=== PATIENT | female | born 1950 | race Caucasian/White ===

== ENCOUNTER 2017-04-15 20:14 | Emergency (ER) | payer OTHER ==
[~2017-04-15] VITALS: Ht 170.2 cm; Wt 77.5 kg
[~2017-04-15 20:14] MED LIST: AMLO-114 PO; ATV5 PO; BUPR-79 PO; GLC500 PO; GLCSR5 PO; LISI40TA PO; TRIA0.1C20 TD
[2017-04-15 20:15] VITALS: TEMP 37.3; Ht 170.2 cm; Wt 77.5 kg
[2017-04-15 21:25] LABS: ALBUMIN 3.9 gm/dl (3.4-5.0); ALT/SGPT 16 U/L (12-78); AST/SGOT 16 U/L (15-37); BLOOD UREA NITROGEN 12 mg/dl (7-18); CALCIUM 8.9 mg/dl (8.5-10.1); CARBON DIOXIDE 27 mmol/L (21-32); GLUCOSE 293 mg/dl (70-99); POTASSIUM 3.4 mmol/L (3.5-5.1); SODIUM 137 mmol/L (136-145)
[2017-04-15 21:35] LABS: BASO % 0.4 %; BASO ABS # 0.03 K/uL (0-0.2); EOS % 0.5 %; EOS ABS # 0.04 K/uL (0-0.5); HEMATOCRIT 39.8 % (37-47); IG# 0.01 K/uL (0.00-0.02); LYMPH % 30.3 %; LYMPH ABS # 2.24 K/uL (1.2-3.4); MEAN CELL VOLUME 82.6 fL (80-100); MEAN CORPUSCULAR HGB CONC 35.2 g/dl (32-36); MEAN PLATELET VOLUME 11.1 fL (7.4-10.4); MONO % 6.9 %; MONO ABS # 0.51 K/uL (0.11-0.59); NEUT % 61.8 %; NEUT ABS # 4.57 K/uL (1.4-6.5); PLATELET COUNT 240 K/uL (130-400); RED CELL DISTRIBUTION WIDTH CV 13.2 % (11.5-14.5); RED CELL DISTRIBUTION WIDTH SD 39.9 fL (36.4-46.3)
[2017-04-15 21:36] LABS: ALKALINE PHOSPHATASE 93 U/L (45-117); CKMB < 0.5 ng/ml (0.5-3.6); TOTAL PROTEIN 7.5 gm/dl (6.4-8.2)
--- NOTE | 2017-04-15 22:02 | DIAGNOSTIC IMAGING REPORT ---
CHEST ONE VIEW PORTABLE HISTORY: Syncope COMPARISON: Chest 07/08/2009. FINDINGS: The lungs are clear. Cardiac silhouette is normal in size. No pleural effusions. No pneumothorax. IMPRESSION: No acute process. Electronically signed by: Brian Jackson M.D. 04/15/2017 10:01 PM Dictated Date/Time: 04/15/2017 10:00 PM
[2017-04-15] MEDS ORDERED: SODIUM CHLORIDE 0.9% 1000ML 1,000 ML, SODIUM CHLORIDE 0.9% 1000ML 1,000 ML IV ONE (22:15)
[2017-04-15] MEDS ORDERED: OPTIRAY 320 IV PRN (22:30)
--- NOTE | 2017-04-15 23:03 | DIAGNOSTIC IMAGING REPORT ---
HEAD CT NONCONTRAST CT DOSE: 1129.79 mGy.cm HISTORY: Syncope. Head injury. TECHNIQUE: Multiaxial CT images of the head were performed without the use of intravenous contrast. Automated exposure control was utilized for this study. A dose lowering technique was utilized adhering to the principles of ALARA. Comparison: Head CT 04/18/2011. Findings: The paranasal sinuses and mastoid air cells are clear. The calvarium and skull base are intact. The ventricles and sulci are within normal limits. There is no mass, hematoma, midline shift, or acute infarct. Impression: No acute intracranial abnormality. Electronically signed by: Brian Jackson M.D. 04/15/2017 11:02 PM Dictated Date/Time: 04/15/2017 10:58 PM
--- NOTE | 2017-04-15 23:11 | DIAGNOSTIC IMAGING REPORT ---
CHEST CTA for PULMONARY ARTERIES CT DOSE: HISTORY: Tachycardia. TECHNIQUE: Multiaxial CT images of the chest were performed following the intravenous administration of contrast to evaluate the pulmonary arteries. Maximal intensity projection images were also obtained. A dose lowering technique was utilized adhering to the principles of ALARA. COMPARISON STUDY: Chest CT 04/18/2011. FINDINGS: The visualized liver and adrenal glands are unremarkable. Punctate calcified granuloma within the spleen. A 1 cm calcified splenic artery aneurysm. No pleural or pericardial effusions. The heart is normal in size. No mediastinal or hilar lymphadenopathy. No suspicious lytic or blastic osseous lesions. No acute fractures identified within the chest. No pneumothorax. The central airways are patent. Punctate calcified granuloma within the left lung base. The lungs are otherwise clear. Normal caliber thoracic aorta with no evidence for dissection. No filling defects within the pulmonary arteries to suggest pulmonary embolus. IMPRESSION: No evidence for pulmonary embolus. Electronically signed by: Brian Jackson M.D. 04/15/2017 11:10 PM Dictated Date/Time: 04/15/2017 11:02 PM
[2017-04-16] MEDS ORDERED: HYDR25TA4 PO (01:54)
[2017-04-16] MEDS ORDERED: METF-384 PO (01:55)
[2017-04-16] MEDS ORDERED: METO100T14 PO (01:55)
[2017-04-16 01:57] VITALS: BP 142/85; PULSE 95; O2SAT 96
--- NOTE | 2017-04-16 07:35 | EMERGENCY ROOM VISIT NOTE ---
History First contact with patient: 21:57 Chief Complaint: SYNCOPE Stated Complaint: SYNCOPE Nursing Triage Summary: PT stood up to get out of bed this evening "I became very light headed and dizzy, I passed out." PT hit left side of nose, PT did have bleeding for EMS. upon arrival, PT has no active bleeding. PT AAO X 3, face symmetrical, PERRL, PT has no complaints. PT denies CP or SOB. PT speech clear and articulate. History of Present Illness The patient is a 66 year old female who presents to the Emergency Room with complaints of syncopal versus near syncopal episode that occurred about 2 hours ago. The patient is currently under the care of [facility], and was laying in her cot, when she stood up to use the bathroom, felt dizzy, sat down, and had the episode. The patient believes that she may have struck her left side head, but did not have bleeding or other injury. She does not describe chest pain, chest tightness, shortness of breath, palpitations, or spinning before after the event. The patient denies other concerns. She rates her discomfort a 4/10. Review of Systems More than 10 systems were reviewed and otherwise negative with the exception of history of present illness. Past Medical/Surgical History Diabetes and hypertension Family History No pertinent family history Social History Smoking Status: Former Smoker Marital Status: Occupation Status: unemployed Current/Historical Medications Scheduled Amlodipine (Norvasc), 10 MG PO DAILY Hydrochlorothiazide (Hctz), 50 MG PO DAILY Lisinopril (Prinivil), 40 MG PO QAM Metformin Hcl (Glucophage), 1,000 MG PO BID Metoprolol Tartrate (Lopressor) (Lopressor), 100 MG PO BID Physical Exam Vital Signs Date Time Temp Pulse Resp B/P (MAP) Pulse Ox O2 Delivery O2 Flow Rate FiO2 04/16/17 01:57 95 18 142/85 96 04/16/17 01:17 93 04/16/17 00:58 143/88 04/16/17 00:30 94 24 94 Room Air 04/16/17 00:00 103 20 95 Room Air 04/15/17 23:30 97 18 94 Room Air 04/15/17 23:00 101 23 93 Room Air 04/15/17 22:46 106 18 138/79 95 Room Air 04/15/17 21:20 117 04/15/17 20:15 37.3 132 18 169/112 98 Room Air Physical Exam VITALS: Vitals are noted on the nurse's note and reviewed by myself. Vital signs stable. GENERAL: Well-developed, well-nourished, white female, who is in no acute distress and resting comfortably. Patient is cooperative with the examination. GCS 15 HEAD: Normocephalic atraumatic. EARS: External ear normal. External auditory canals clear, tympanic membranes pearly wesley without erythema or effusion bilaterally. EYES: Pupils equal round and reactive to light and accommodation. Conjunctivae without injection, sclerae without icterus. Extraocular movements intact. NOSE: Patent, turbinates without inflammation or discharge. MOUTH: Mucous membranes moist. Tonsils are not enlarged. Pharynx without erythema, blood, or exudate. Uvula midline. Airway patent. NECK: Supple without nuchal rigidity. No lymphadenopathy. No thyromegaly. Cervical spine is nontender. HEART: Tachycardic rate with regular rhythm LUNGS: Clear to auscultation bilaterally without wheezes, rales or rhonchi. No retractions or accessory muscle use. ABDOMEN: Positive normal bowel sounds x 4. Soft, nontender, without masses or organomegaly. No guarding or rebound tenderness. MUSCULOSKELETAL: No muscle atrophy, erythema, or edema noted. Full range of motion without joint tenderness in all extremities. No tenderness to palpation. Normal gait. Strength 5/5 throughout. NEURO: Patient was alert and oriented to person place and time. CN II through XII grossly intact. No focal neurological deficits. Deep tendon reflexes 2+ throughout. SKIN: The skin was without rashes, erythema, edema, or bruising. Capillary refill less than 2 seconds. Medical Decision & Procedures ER Provider Diagnostic Interpretation: HEAD CT NONCONTRAST CT DOSE: 1129.79 mGy.cm HISTORY: Syncope. Head injury. TECHNIQUE: Multiaxial CT images of the head were performed without the use of intravenous contrast. Automated exposure control was utilized for this study. A dose lowering technique was utilized adhering to the principles of ALARA. Comparison: Head CT 04/18/2011. Findings: The paranasal sinuses and mastoid air cells are clear. The calvarium and skull base are intact. The ventricles and sulci are within normal limits. There is no mass, hematoma, midline shift, or acute infarct. Impression: No acute intracranial abnormality. CHEST CTA for PULMONARY ARTERIES CT DOSE: HISTORY: Tachycardia. TECHNIQUE: Multiaxial CT images of the chest were performed following the intravenous administration of contrast to evaluate the pulmonary arteries. Maximal intensity projection images were also obtained. A dose lowering technique was utilized adhering to the principles of ALARA. COMPARISON STUDY: Chest CT 04/18/2011. FINDINGS: The visualized liver and adrenal glands are unremarkable. Punctate calcified granuloma within the spleen. A 1 cm calcified splenic artery aneurysm. No pleural or pericardial effusions. The heart is normal in size. No mediastinal or hilar lymphadenopathy. No suspicious lytic or blastic osseous lesions. No acute fractures identified within the chest. No pneumothorax. The central airways are patent. Punctate calcified granuloma within the left lung base. The lungs are otherwise clear. Normal caliber thoracic aorta with no evidence for dissection. No filling defects within the pulmonary arteries to suggest pulmonary embolus. IMPRESSION: No evidence for pulmonary embolus. CHEST ONE VIEW PORTABLE HISTORY: Syncope COMPARISON: Chest 07/08/2009. FINDINGS: The lungs are clear. Cardiac silhouette is normal in size. No pleural effusions. No pneumothorax. IMPRESSION: No acute process. Laboratory Results 04/15/17 20:30 Red Blood Count 4.82, Mean Corpuscular Volume 82.6, Mean Corpuscular Hemoglobin 29.0, Mean Corpuscular Hemoglobin Concent 35.2, Mean Platelet Volume 11.1, Neutrophils (%) (Auto) 61.8, Lymphocytes (%) (Auto) 30.3, Monocytes (%) (Auto) 6.9, Eosinophils (%) (Auto) 0.5, Basophils (%) (Auto) 0.4, Neutrophils # (Auto) 4.57, Lymphocytes # (Auto) 2.24, Monocytes # (Auto) 0.51, Eosinophils # (Auto) 0.04, Basophils # (Auto) 0.03 04/15/17 20:30 Test 04/15/17 20:30 White Blood Count 7.40 K/uL (4.8-10.8) Red Blood Count 4.82 M/uL (4.2-5.4) Hemoglobin 14.0 g/dL (12.0-16.0) Hematocrit 39.8 % (37-47) Mean Corpuscular Volume 82.6 fL (80-100) Mean Corpuscular Hemoglobin 29.0 pg (25-34) Mean Corpuscular Hemoglobin Concent 35.2 g/dl (32-36) Platelet Count 240 K/uL (130-400) Mean Platelet Volume 11.1 fL (7.4-10.4) Neutrophils (%) (Auto) 61.8 % Lymphocytes (%) (Auto) 30.3 % Monocytes (%) (Auto) 6.9 % Eosinophils (%) (Auto) 0.5 % Basophils (%) (Auto) 0.4 % Neutrophils # (Auto) 4.57 K/uL (1.4-6.5) Lymphocytes # (Auto) 2.24 K/uL (1.2-3.4) Monocytes # (Auto) 0.51 K/uL (0.11-0.59) Eosinophils # (Auto) 0.04 K/uL (0-0.5) Basophils # (Auto) 0.03 K/uL (0-0.2) RDW Standard Deviation 39.9 fL (36.4-46.3) RDW Coefficient of Variation 13.2 % (11.5-14.5) Immature Granulocyte % (Auto) 0.1 % Immature Granulocyte # (Auto) 0.01 K/uL (0.00-0.02) Anion Gap 9.0 mmol/L (3-11) Est Creatinine Clear Calc Drug Dose 54.7 ml/min Estimated GFR () 61.0 Estimated GFR (Non- 52.6 BUN/Creatinine Ratio 10.7 (10-20) Calcium Level 8.9 mg/dl (8.5-10.1) Magnesium Level 1.3 mg/dl (1.8-2.4) Total Bilirubin 0.3 mg/dl (0.2-1) Aspartate Amino Transf (AST/SGOT) 16 U/L (15-37) Alanine Aminotransferase (ALT/SGPT) 16 U/L (12-78) Alkaline Phosphatase 93 U/L (45-117) Creatine Kinase MB < 0.5 ng/ml (0.5-3.6) Creatine Kinase MB Ratio (0-3.0) Troponin I < 0.015 ng/ml (0-0.045) Total Protein 7.5 gm/dl (6.4-8.2) Albumin 3.9 gm/dl (3.4-5.0) Globulin 3.6 gm/dl (2.5-4.0) Albumin/Globulin Ratio 1.1 (0.9-2) Thyroid Stimulating Hormone (TSH) 2.790 uIu/ml (0.300-4.500) Medications Administered Medications (Trade) Dose Ordered Sig/Ruben Route Start Time Stop Time Status Last Admin Dose Admin Sodium Chloride/ Sodium Chloride 2,000 ml @ 999 mls/hr Q2H1M ONCE IV 04/15/17 22:15 04/16/17 00:15 DC 04/15/17 22:44 999 MLS/HR ED Course Physical exam and history were performed. Nursing notes, EMR, and Medication List were personally reviewed. Patient appears to have had a possible syncopal episode today. On examination the patient appears well. She is actively conversing with guards, and laughing. She does not have significant outward signs of trauma. IV access was established and labs were obtained. EKG was performed and was sinus tachycardia 109 bpm without obvious ischemia. I did review this myself and with my attending physician, and the patient's EKG is essentially unchanged from previous EKG in 2009. I did elect to perform CT scan of her head and chest to better evaluate her symptoms. The patient's blood work is as above and was reviewed. She does not have a significantly elevated white blood cell count, gross anemia, bandemia, or significant electrolyte imbalance. Her sugar is elevated, but she is a diabetic. The patient's blood pressure was initially elevated, but this also improved over time and hydration. The patient CT scan of the head is without acute findings. Chest CT does not show pulmonary embolism. Troponin is negative. The patient was monitored over the course of several hours here in the department. She did not have recurrence or any worsening of her symptoms. She slowly had improvement of her vital signs with minimal intervention other than hydration. Clinically I suspect that she may have been dehydrated, and triggered a vasovagal episode from standing from a laying position. The patient appears well for discharge will need to follow with the [facility] for further management. She was otherwise invited back to the ER with any new, worsening, or concerning symptoms. The chart was completed utilizing [employer] Voice Recognition Software. Grammatical errors, random word insertions, pronoun errors, and incomplete sentences are an occasional consequence of this system due to software limitations, ambient noise, and hardware issues. Any formal questions or concerns about the content, text, or information contained within the body of this dictation should be directly addressed to the provider for clarification. . Medical Decision Differential diagnosis: Etiologies such as vasovagal event, infection, hypoglycemia, electrolyte abnormalities, cardiac sources, intracerebral event, toxicologic, neurologic, as well as others were entertained. Impression Primary Impression: Syncope and collapse Additional Impression: Head injury Departure Information Dispostion Home / Self-Care Condition GOOD Forms HOME CARE DOCUMENTATION FORM, IMPORTANT VISIT INFORMATION Patient Instructions [facility] Additional Instructions You were seen and evaluated today on an emergency basis only. This is not a substitute for, or an effort to provide, complete comprehensive medical care. It is not possible to recognize and treat all injuries or illnesses in a single emergency department visit. For this reason it is recommended that you followup with the [facility] for ongoing care and evaluation. Drink plenty of fluids and remain well hydrated. Dehydration can contribute to your symptoms. You are welcome to return to the emergency department anytime with new, worsening, or concerning symptoms. Problem Qualifiers
== END 2017-04-16 01:58 | disposition home or self-care (01) ==
LOC: C.EDC 20:14 → EDBD 20:14 → C.EDC 04-16 01:58
DX: R55 Syncope and collapse (principal); S09.90XA Unspecified injury of head, initial encounter; X58.XXXA Exposure to other specified factors, initial encounter; Z87.891 Personal history of nicotine dependence

== ENCOUNTER 2023-03-05 11:23 | Inpatient (IN) ==
--- NOTE | 2023-03-05 11:35 | Emergency Department Note ---
History of Present Illness General Chief complaint: Foot Injury/Pain Time Seen by Provider: 03/05/23 11:26 History of Present Illness NAME: LUISITO VALLE AGE: 72 SEX: F : 1950 ARRIVES VIA: Ambulance INFORMANT: Patient, Mother ED PROVIDER(S): ABY Lal,, Raj Ford MD The patient is a 72-year-old female who arrives to the emergency department via ambulance for foot pain upon arrival the patient has a necrotic fourth right toe, with multiple necrotic wounds on her bilateral feet, as well as cellulitis extending up both legs with edema. The patient has wounds on her buttocks, as well as her back and her nose. The patient is very ill-appearing, and tachycardic upon arrival. She is a poor historian, and does not see a doctor regularly when asked about what medications she takes she was able to reports she takes metformin, however she does not recall any other meds. The patient is not currently reporting any abdominal pain, chest pain, shortness of breath, or neurological symptoms. She is reporting pain in her right foot, since she "hit it on a table a few days ago." Home Medications Medication Instructions Recorded Confirmed Type amlodipine 5 mg tablet 5 mg PO DAILY 03/05/23 03/05/23 History aspirin 81 mg tablet,delayed 81 mg PO DAILY 03/05/23 03/05/23 History release atorvastatin 80 mg tablet 80 mg PO HS 03/05/23 03/05/23 History clopidogrel 75 mg tablet 75 mg PO DAILY 03/05/23 03/05/23 History glipizide 5 mg tablet 5 mg PO BID 03/05/23 03/05/23 History lisinopril 20 20 - 25 tab PO DAILY 03/05/23 03/05/23 History mg-hydrochlorothiazide 25 mg tablet metformin 1,000 mg tablet 1,000 mg PO BIDM 03/05/23 03/05/23 History Allergies Allergy/AdvReac Type Severity Reaction Status Date / Time No Known Allergies Allergy Verified 03/28/21 02:27 Past Med/Surg History Medical History (Updated 03/06/23 @ 21:01 by ABY Wynn) Septic shock ARDS (adult respiratory distress syndrome) Cardiac arrest T2DM (type 2 diabetes mellitus) HLD (hyperlipidemia) PAD (peripheral artery disease) Mr. Valle returns to clinic s/p percutaneous transluminal angioplasty of the right anterior tibial artery (2.5 x 40 mm [place] balloon), percutaneous transluminal angioplasty of the right tibioperoneal trunk (2.5 x 40 mm [place] balloon) and percutaneous transluminal angioplasty and stenting of the right superficial femoral artery and popliteal artery (6 x 100 mm and 6 x 40 mm Pors[place] stents, post-dilated to 5 mm) by Dr. Mckeon 06/21/2021. Psoriasis No pertinent family history HTN (hypertension) Syncope and collapse Head injury Surgical History (Updated 03/06/23 @ 15:28 by Elzbieta Rainey MD) History of incision and drainage (03/05/23) Incision and Drainage Infected Hematoma Right Foot Plantar Surface - Lm Steele DO Hx of lithotripsy Hx of angioplasty Family History Mother Cancer brain cancer age 76 Father Diabetes Social History Smoking Status: Current some day smoker Cigarettes Per Day: 3 cigarettes/month; Second Hand Exposure: Yes; Hx Alcohol Use: No Hx Substance Use: No Preferred Language: Spanish Communication Ability: Effective Visual Impairment: No Limitations Hearing Ability: Normal Cleater Required: No Beliefs That Will Affect Care: None marital status: / Current Living Situation: Alone Current Living Situation Comment: Lives alone in apartment Feels Safe at Home: Yes Assistive Devices: Denture - Upper Physical Exam Vital Signs Vital Signs - 24 hr 03/05/23 11:33 03/05/23 11:35 03/05/23 11:58 Temperature 36.9 C 36.9 C Temperature Source Oral Oral Pulse Rate 133 H Pulse Rate [Apical] 138 H Pulse Rhythm Regular Pulse Strength Normal Respiratory Rate 18 28 H Respiratory Effort / Characteristics Non-Labored Respiratory Depth Normal Respiratory Pattern Regular Blood Pressure 182/116 H Blood Pressure [Right Arm] 164/119 H Blood Pressure Mean 138 Blood Pressure Mean [Right Arm] 134 Pulse Oximetry 100 100 Oxygen Delivery Method Room Air Room Air Oxygen Flow Rate 116 Sepsis Recent Fever Within 48 Hours No Sepsis New/Unexplained Change in Mental Status No Sepsis Action Taken by Nursing No Action Required 03/05/23 12:00 03/05/23 12:20 Temperature Temperature Source Pulse Rate Pulse Rate [Apical] 138 H 141 H Pulse Rhythm Pulse Strength Respiratory Rate 28 H 29 H Respiratory Effort / Characteristics Respiratory Depth Respiratory Pattern Blood Pressure Blood Pressure [Right Arm] Blood Pressure Mean Blood Pressure Mean [Right Arm] Pulse Oximetry 98 100 Oxygen Delivery Method Room Air Room Air Oxygen Flow Rate Sepsis Recent Fever Within 48 Hours Sepsis New/Unexplained Change in Mental Status Sepsis Action Taken by Nursing General: Awake, alert and oriented. No acute distress. Well developed, hydrated and nourished. Appears stated age. Skin: There are multiple wounds on the patient's body in various stages of healing. Head: The head is normocephalic and atraumatic without tenderness, visible or palpable masses, depressions, or scarring. There is a wound to the patient's bridge of the nose, it appears to be an ulcerated lesion Eyes: Conjunctivae are clear without exudates or hemorrhage. Sclera is non- icteric. EOM are intact, PERRLA. No signs of nystagmus. Eyelids are normal in appearance without swelling or lesions. Ears: The external ear and ear canal are non-tender and without swelling. The canal is clear without discharge. The tympanic membrane is normal in appearance with normal landmarks and cone of light. Hearing is intact. Nose: Nasal mucosa is pink and moist. The nasal septum is midline. Nares are patent bilaterally. Throat: Oral mucosa is pink and moist. Tongue normal in appearance without lesions and with good symmetrical movement. No buccal nodules or lesions are noted. The pharynx is normal in appearance without tonsillar swelling or exudates. Neck: The neck is supple without adenopathy. Trachea is midline. Thyroid gland is normal without masses. Carotid pulse 2+ bilaterally without bruit. No JVD. Cardiac: The external chest is normal in appearance without lifts, heaves, or thrills. Heart rate and rhythm are normal. No murmurs, gallops, or rubs are auscultated. S1 and S2 are heard and are of normal intensity. Respiratory: The chest wall is symmetric and without deformity. No signs of trauma. Chest wall is non-tender. No signs of respiratory distress. Lung sounds are coarse in all lobes bilaterally. Abdominal: Abdomen is soft, symmetric, and non-tender without distention. Bowel sounds are present and normoactive in all four quadrants. No masses, hepatomegaly, or splenomegaly are noted. Extremities: Bilateral lower extremities have wounds in various stages of healing, the patient has a necrotic appearing fourth toe on her right foot. There is cellulitis on bilateral lower extremities extending to the shins. The patient has areas of necrosis to her bilateral posterior heels. Neurological: The patient is awake, alert and oriented to person, place, and time with normal speech. Motor function is normal with muscle strength 5/5 bilaterally to upper and lower extremities. Sensation is intact bilaterally. Reflexes 2+ bilaterally. Cranial nerves are intact. Cerebellar function is intact. Memory is normal and thought process is intact. Psychiatric: Appropriate mood and affect. Good judgement and insight. No visual or auditory hallucinations. No suicidal or homicidal ideation. Course Administered Medications Acetaminophen (Acetaminophen 325 Mg Tab) 650 mg PO Q4H PRN PRN Reason: Pain or Fever Stop: 04/04/23 19:45 Last Admin: 03/06/23 02:26 Dose: 650 mg Documented By: KAREY Amlodipine Besylate (Amlodipine Besylate 5 Mg Tab) 5 mg PO DAILY [facility] Stop: 04/05/23 08:59 Last Admin: 03/06/23 08:58 Dose: 5 mg Documented By: SOCRATES Hydromorphone HCl (Hydromorphone Inj 0.5 Mg/0.5 Ml Syr) 0.5 mg IV Q4H PRN PRN Reason: Mod-Sev Pain (Scale 4-10) Stop: 03/20/23 02:30 Last Admin: 03/06/23 12:55 Dose: 0.5 mg Documented By: Admin: 03/06/23 09:00 Dose: 0.5 mg Documented By: Admin: 03/06/23 02:58 Dose: 0.5 mg Documented By: KAREY Piperacillin Sod/Tazobactam (Sod 4.5 gm/ Dextrose) 100 mls @ 25 mls/hr IV Q8H [facility]; Protocol Stop: 04/16/23 20:29 Last Infusion: 03/06/23 20:05 Dose: Infused Documented By: Admin: 03/06/23 14:09 Dose: 25 mls/hr Documented By: Infusion: 03/06/23 09:04 Dose: Infused Documented By: Admin: 03/06/23 04:52 Dose: 25 mls/hr Documented By: Infusion: 03/06/23 03:04 Dose: Infused Documented By: Infusion: 03/06/23 00:20 Dose: 25 mls/hr Documented By: Infusion: 03/05/23 21:46 Dose: 0 mls/hr Documented By: Admin: 03/05/23 21:03 Dose: 25 mls/hr Documented By: DM Epinephrine HCl () 4 mg in 254 mls @ 6.081 mls/hr IV .Q24H VON; Protocol Stop: 04/05/23 16:29 Last Titration: 03/06/23 17:25 Dose: 0 mcg/kg/min, 0 mls/hr Documented By: Admin: 03/06/23 16:55 Dose: 0.2 mcg/kg/min, 60.8 mls/hr Documented By: AMB Co-signed By: LLP Norepinephrine Bitartrate (Levophed/D5w) 4 mg in 250 mls @ 14.963 mls/hr IV .[id number] VON; Protocol Stop: 04/05/23 16:44 Last Admin: 03/06/23 20:38 Dose: 0.05 mcg/kg/min, 15 mls/hr Documented By: CF Co-signed By: SHIRA Titration: 03/06/23 20:38 Dose: Infused Documented By: CF Co-signed By: SHIRA Admin: 03/06/23 18:41 Dose: 0.05 mcg/kg/min, 15 mls/hr Documented By: AMB Co-signed By: GPF Fentanyl Citrate (Fentanyl Citrate) 2,500 mcg in 250 mls @ 2.5 mls/hr IV .Q96H VON; Protocol Stop: 03/20/23 17:29 Last Admin: 03/06/23 18:42 Dose: 75 mcg/hr, 7.5 mls/hr Documented By: AMB Co-signed By: GPF Azithromycin 500 mg/ Dextrose 255 mls @ 125 mls/hr IV ONE ONE Stop: 03/06/23 21:10 Last Admin: 03/06/23 19:49 Dose: 125 mls/hr Documented By: SHIRA Magnesium Sulfate/Dextrose (Magnesium Sulfate / D5w) 1 gm in 100 mls @ 50 mls/hr IV Q2H [facility]ON Stop: 03/06/23 23:14 Last Admin: 03/06/23 19:47 Dose: 50 mls/hr Documented By: SHIRA Insulin Aspart (Insulin Aspart Per Unit Charge) 0 units SC ACHS [facility] Stop: 04/05/23 11:29 Last Admin: 03/06/23 20:04 Dose: Not Given Documented By: TURNER Co-signed By: SHIRA Admin: 03/06/23 12:45 Dose: Not Given Documented By: SOCRATES Insulin Glargine (Lantus Per Unit Charge) 0 - 10 units SQ BID [facility] Stop: 04/04/23 20:59 Last Admin: 03/06/23 20:07 Dose: 5 units Documented By: TURNER Co-signed By: SHIRA Admin: 03/06/23 08:36 Dose: Not Given Documented By: Admin: 03/05/23 20:40 Dose: Not Given Documented By: DM Lisinopril (Lisinopril 20 Mg Tab) 20 mg PO QAM [facility] Stop: 04/05/23 08:59 Last Admin: 03/06/23 08:58 Dose: 20 mg Documented By: SOCRATES Discontinued Medications Acetaminophen (Acetaminophen 500 Mg Tab) 1,000 mg PO NOW STA Stop: 03/05/23 13:39 Last Admin: 03/05/23 14:28 Dose: Not Given Documented By: KENAN Acetaminophen (Acetaminophen 1000 Mg/100 Ml Iv) Confirm Administered Dose 1,000 mg IV .STK-MED ONE Stop: 03/05/23 14:37 Last Admin: 03/05/23 14:43 Dose: Not Given Documented By: KENAN Fentanyl Citrate (Fentanyl Citrate Pf 100 Mcg/2 Ml Vial) Confirm Administered Dose 100 mcg .ROUTE .STK-MED ONE Stop: 03/06/23 16:54 Last Admin: 03/06/23 18:41 Dose: 50 mcg Documented By: MARIANA Fentanyl Citrate (Fentanyl Citrate 2,500 Mcg/250 Ml Bag) Confirm Administered Dose 2,500 mcg IV .STK-MED ONE Stop: 03/06/23 17:20 Last Admin: 03/06/23 20:04 Dose: Not Given Documented By: TURNER Gadobutrol (Gadobutrol 65ml Vial) 8 ml IV ONCE ONE Stop: 03/05/23 23:53 Last Admin: 03/05/23 23:52 Dose: 8 ml Documented By: AMOS Gentamicin Sulfate (Gentamicin Sulfate 40 Mg/Ml 2 Ml Vial) Confirm Administered Dose 240 mg .ROUTE .STK-MED ONE Stop: 03/05/23 17:33 Last Admin: 03/05/23 17:48 Dose: Not Given Documented By: ANIA Cefepime HCl (Maxipime) 2,000 mg in 20 mls @ 5 mls/min IV NOW STA; Protocol Stop: 03/05/23 12:07 Last Admin: 03/05/23 13:01 Dose: 5 mls/min Documented By: ASMITA Sodium Chloride (Nss) 500 mls @ 999 mls/hr IV .Q31M ONE Stop: 03/05/23 13:00 Last Infusion: 03/05/23 14:11 Dose: Infused Documented By: Admin: 03/05/23 12:36 Dose: 999 mls/hr Documented By: ASMITA Clindamycin Phosphate (Cleocin/D5w) 600 mg in 50 mls @ 100 mls/hr IV NOW ONE Stop: 03/05/23 13:44 Last Infusion: 03/05/23 14:11 Dose: Infused Documented By: Admin: 03/05/23 13:25 Dose: 100 mls/hr Documented By: ASMITA Piperacillin Sod/Tazobactam Sod (Zosyn) 4.5 gm in 100 mls @ 200 mls/hr IV NOW ONE Stop: 03/05/23 13:54 Last Infusion: 03/05/23 14:59 Dose: Infused Documented By: Admin: 03/05/23 14:28 Dose: 200 mls/hr Documented By: KENAN Daptomycin 375 mg/ Syringe 7.5 mls @ 3.75 mls/min IV Q24H [facility]; Protocol Stop: 03/12/23 13:59 Last Admin: 03/06/23 14:08 Dose: 3.75 mls/min Documented By: Admin: 03/05/23 14:43 Dose: 3.75 mls/min Documented By: KENAN Sodium Chloride (Nss) 1,000 mls @ 999 mls/hr IV .Q1H1M ONE Stop: 03/05/23 15:16 Last Infusion: 03/05/23 19:49 Dose: Infused Documented By: Admin: 03/05/23 14:29 Dose: 999 mls/hr Documented By: KENAN Acetaminophen (Ofirmev) 1,000 mg in 100 mls @ 400 mls/hr IV NOW STA Stop: 03/05/23 14:45 Last Infusion: 03/05/23 19:48 Dose: Infused Documented By: Admin: 03/05/23 14:43 Dose: 400 mls/hr Documented By: KENAN Clindamycin Phosphate (Cleocin/D5w) 600 mg in 50 mls @ 100 mls/hr IV Q8H VON Stop: 04/16/23 21:59 Last Infusion: 03/06/23 14:47 Dose: Infused Documented By: Admin: 03/06/23 14:02 Dose: 100 mls/hr Documented By: Infusion: 03/06/23 05:30 Dose: Infused Documented By: Admin: 03/06/23 05:00 Dose: 100 mls/hr Documented By: Infusion: 03/06/23 00:31 Dose: Infused Documented By: Infusion: 03/06/23 00:20 Dose: 100 mls/hr Documented By: Infusion: 03/05/23 21:47 Dose: 0 mls/hr Documented By: Admin: 03/05/23 21:35 Dose: 100 mls/hr Documented By: KAREY Magnesium Sulfate/Dextrose (Magnesium Sulfate / D5w) 1 gm in 100 mls @ 50 mls/hr IV Q2H [facility]ON Stop: 03/06/23 01:45 Last Infusion: 03/06/23 04:12 Dose: Infused Documented By: Admin: 03/06/23 02:39 Dose: 50 mls/hr Documented By: Infusion: 03/06/23 02:39 Dose: Infused Documented By: Admin: 03/06/23 00:39 Dose: 50 mls/hr Documented By: Infusion: 03/06/23 00:39 Dose: Infused Documented By: Infusion: 03/06/23 00:20 Dose: 50 mls/hr Documented By: Infusion: 03/05/23 21:47 Dose: 0 mls/hr Documented By: Admin: 03/05/23 20:07 Dose: 50 mls/hr Documented By: KAREY Sodium Chloride (Nss) 1,000 mls @ 80 mls/hr IV .[id number] VON Stop: 04/04/23 19:45 Last Admin: 03/06/23 09:02 Dose: 80 mls/hr Documented By: Infusion: 03/06/23 09:02 Dose: Infused Documented By: Infusion: 03/06/23 00:20 Dose: 80 mls/hr Documented By: Infusion: 03/05/23 21:47 Dose: 0 mls/hr Documented By: Admin: 03/05/23 20:07 Dose: 80 mls/hr Documented By: KAREY Potassium Chloride (K Edin / Wtr) 10 meq in 100 mls @ 100 mls/hr IV ONE ONE Stop: 03/06/23 11:08 Last Infusion: 03/06/23 12:45 Dose: Infused Documented By: Admin: 03/06/23 11:22 Dose: 100 mls/hr Documented By: SOCRATES Vancomycin HCl 2,000 mg/ (Sodium Chloride) 540 mls @ 200 mls/hr IV ONE ONE Stop: 03/06/23 20:11 Last Admin: 03/06/23 18:43 Dose: 200 mls/hr Documented By: MARIANA Sodium Bicarbonate 150 meq/ (Dextrose) 1,150 mls @ 150 mls/hr IV .Q7H40M VON Stop: 04/05/23 17:29 Last Admin: 03/06/23 18:43 Dose: 150 mls/hr Documented By: MARIANA Insulin Aspart (Insulin Aspart Per Unit Charge) 0 units SC ACHS VON Stop: 04/04/23 20:59 Last Admin: 03/05/23 20:58 Dose: Not Given Documented By: KAREY Insulin Aspart (Insulin Aspart Per Unit Charge) 0 units SC Q6 VON Stop: 04/05/23 05:59 Last Admin: 03/06/23 06:00 Dose: Not Given Documented By: KAREY Ioversol (Optiray 320 125ml) 116 ml IV ONCE ONE Stop: 03/06/23 17:45 Last Admin: 03/06/23 17:44 Dose: 116 ml Documented By: DEJAN Lidocaine HCl (Lidocaine 1% Local 20 Ml Vial) Confirm Administered Dose 1 ml .ROUTE .STK-MED ONE Stop: 03/05/23 16:30 Last Admin: 03/05/23 17:51 Dose: Not Given Documented By: CSS Morphine Sulfate (Morphine Sulfate 4 Mg/Ml 1 Ml Carp\\Vial) 4 mg IV NOW STA Stop: 03/05/23 12:30 Last Admin: 03/05/23 12:35 Dose: 4 mg Documented By: ASMITA Norepinephrine Bitartrate (Norepinephrine/D5w 4 Mg/250 Ml) Confirm Administered Dose 4 mg IV .STK-MED ONE Stop: 03/06/23 16:41 Last Admin: 03/06/23 20:04 Dose: Not Given Documented By: CF Potassium Chloride (Potassium Chloride Crtab 20 Meq Tabcr) 40 meq PO NOW STA Stop: 03/05/23 19:47 Last Admin: 03/05/23 20:08 Dose: 40 meq Documented By: KAREY Potassium Chloride (Potassium Chloride Crtab 20 Meq Tabcr) 20 meq PO TODAY@0645 [facility] Stop: 03/06/23 12:00 Last Admin: 03/06/23 09:37 Dose: 20 meq Documented By: SOCRATES Sodium Bicarbonate (Sodium Bicarb 8.4% Inj 50 Meq/50 Ml Syr) Confirm Administered Dose 100 meq IV .STK-MED ONE Stop: 03/06/23 16:50 Last Admin: 03/06/23 18:41 Dose: 100 meq Documented By: AMB Sodium Bicarbonate (Sodium Bicarb 8.4% Inj 50 Meq/50 Ml Syr) 50 meq IV NOW STA Stop: 03/06/23 17:30 Last Admin: 03/06/23 18:48 Dose: Not Given Documented By: AMB Vancomycin HCl (Vancomycin Hcl 1000mg/20ml Vial) Confirm Administered Dose 50 mg .ROUTE .STK-MED ONE Stop: 03/05/23 16:30 Last Admin: 03/05/23 17:50 Dose: 1,000 mg Documented By: [id number] Vancomycin HCl (Vancomycin Hcl 1000mg/20ml Vial) Confirm Administered Dose 50 mg .ROUTE .STK-MED ONE Stop: 03/05/23 17:40 Last Admin: 03/05/23 17:51 Dose: 1,000 mg Documented By: [id number] Medical Decision Making Differential Diagnosis Sepsis, UTI, pneumonia, metabolic, electrolyte abnormalities, cardiac sources, intracerebral event, toxicologic, neurologic, as well as other pathologies. Medical Records Attestation: I reviewed the patient's medical records. Home Medications Current Medication List: was personally reviewed by me Laboratory Data Attestation: I reviewed the patient's lab results. Lactate 3.4, leukocytosis 19.9. Urine infection test shows positive urinary tract infection. 03/06/23 16:50 03/06/23 16:50 Lab Results 03/05/23 03/05/23 03/05/23 Range/Units 12:19 12:21 13:03 WBC 17.04 H (4.8-10.8) K/ul RBC 5.62 H (4.20-5.40) M/uL Hgb 16.0 (12.0-16.0) g/dl Hct 48.5 H (37.0-47.0) % MCV 86.3 (80.0-100.0) fL MCH 28.5 (25.0-34.0) pg MCHC 33.0 (32.0-36.0) g/dL RDW Std Deviation 48.6 H (36.4-46.3) fL RDW Coeff of Marycruz 15.6 H (11.5-14.5) % Plt Count 350 (130-400) K/uL MPV 11.5 (9.4-12.4) fL Immature Gran % (Auto) 0.6 % Neut % (Auto) 91.1 % Lymph % (Auto) 3.4 % Cloud % (Auto) 4.6 % Eos % (Auto) 0.1 % Baso % (Auto) 0.2 % Neut # (Auto) 15.51 H (1.40-6.50) K/uL Lymph # (Auto) 0.58 L (1.20-3.40) K/uL Cloud # (Auto) 0.79 H (0.11-0.59) K/uL Eos # (Auto) 0.01 (0.00-0.50) K/uL Baso # (Auto) 0.04 (0.00-0.20) K/uL Immature Gran # (Auto) 0.11 (0.01-0.20) K/uL Polychromasia 1+ Sodium TNP Potassium TNP Chloride 102 (98-107) mmol/L Carbon Dioxide 27 (21-32) mmol/L Anion Gap TNP BUN 24 H (6-23) mg/dl Creatinine 0.89 (0.6-1.2) mg/dl Est Cr Clr Drug Dosing 61.6 ml/min Est GFR ( Amer) 75.6 ml/min Est GFR (Non-Af Amer) 65.2 ml/min BUN/Creatinine Ratio 27.0 H (10-20) Glucose 118 H (70-99(Fasting)) mg/dl Lactate 3.4 H* (0.4-2.0) mmol/L Calcium 8.9 (8.6-10.3) mg/dl Magnesium TNP Total Bilirubin 1.2 H (0.2-1.0) mg/dl Direct Bilirubin TNP AST TNP ALT 8 (7-52) U/L Alkaline Phosphatase TNP Troponin I High Sens 20.8 H (0-14) pg/ml Total Protein 7.4 (6.0-8.3) gm/dl Albumin TNP Procalcitonin Cancelled Urine Color Dark Yellow Urine Appearance Turbid A (Clear) Urine pH 6.0 (4.5-7.5) Ur Specific [place] 1.023 (1.000-1.030) Urine Protein 2+ H (Negative) Urine Glucose (UA) Negative (Negative) Urine Ketones Trace H (Negative) Urine Blood 1+ H (Negative) Urine Nitrite Positive A (Negative) Urine Bilirubin 1+ H (Negative) Urine Urobilinogen Positive H (Negative) Ur Leukocyte Esterase 2+ H (Negative) Urine WBC (Auto) >30 H (0-5) /hpf Urine RBC (Auto) 0-4 (0-4) /hpf U Hyaline Cast (Auto) 1-5 (0-5) /lpf U Epithel Cells (Auto) 20-30 H (0-5) /lpf Urine Bacteria (Auto) 4+ H (Negative) Urine Yeast Not Reportable Adenovirus (PCR) Not Detected (NotDetected) B. pertussis DNA (PCR) Not Detected (NotDetected) B.parapertussis DNA PCR Not Detected (NotDetected) C. pneumoniae DNA (PCR) Not Detected (NotDetected) Coronavirus OC43 (PCR) Not Detected (NotDetected) Coronavirus HKU1 (PCR) Not Detected (NotDetected) Coronavirus 229E (PCR) Not Detected (NotDetected) SARS-CoV-2 (PCR) Not Detected (NotDetected) Coronavirus NL63 (PCR) Not Detected (NotDetected) Human Metapneumovir PCR Not Detected (NotDetected) Influenza Type A (PCR) Not Detected (NotDetected) Influenza Type B (PCR) Not Detected (NotDetected) M. pneumoniae (PCR) Not Detected (NotDetected) Parainfluenza 1 (PCR) Not Detected (NotDetected) Parainfluenza 2 (PCR) Not Detected (NotDetected) Parainfluenza 3 (PCR) Not Detected (NotDetected) Parainfluenza 4 (PCR) Not Detected (NotDetected) RSV (PCR) Not Detected (NotDetected) Entero/Rhino (PCR) Not Detected (NotDetected) ECG Data Attestation: I personally reviewed and interpreted this ECG as follows: Indication: + other (sepsis) Rate (beats per minute): 133 Rhythm: + sinus tachycardia ECG Intervals/blocks: + Right Bundle branch block ECG [place]: + Left axis deviation ECG Findings: + LVH Comparison ECG Date: from Change: the following changes noted Additional Comments: Increased rate from 119 to 133 Blood Pressure Blood Pressure Findings: Elevated blood pressure MDM Narrative The patient is a 72-year-old female who presents today complaining of toe pain. Upon examination the patinet has wounds on various parts of her body in various stages of healing. The patient has what appears to be a necrotic right 4th toe with cellulitis in BLE extending to the shins. A sepsis workup was ordered to ensure timely antibiotic therapy. IV placement was performed, labs were obtained. Labs revealed leukocytosis, elevated lactic acid. Urinalysis was suggestive of infection. EKG was interpreted by myself and shows sinus tachycardia with RBBB, unchanged from previous EKG. XR imaging of the toe shows cellulitis with subcutaneous emphysema concerning for gas-forming infection. No radiographic evidence of osteomyelitis.The patient was provided broad spectrum abx therapy, fluid resuscitation, and the admission team was contacted. At this time, the admission team will take over the care of the patient. Impression & Plan Sepsis Discharge Plan Visit Data Chief Complaint: Foot Injury/Pain ED Provider: Raj Ford ED Midlevel Provider: Kristin Davalos Discharge Problem: Sepsis Patient Disposition: Admitted As Inpatient Condition: Fair Discharge Instructions Interventions: ED Discharge Assessment Last Done: 03/05/23 14:59 Discharge Problem: Sepsis Qualifiers: Sepsis type: sepsis due to unspecified organism Sepsis acute organ dysfunction status: without acute organ dysfunction Qualified Code(s): A41.9 - Sepsis, unspecified organism
[2023-03-05] MEDS ORDERED: CEFEPIME 2,000 MG/20 ML VIAL IV STA (12:04)
[2023-03-05] MEDS ORDERED: MoRPHine SULFATE 4 MG/ML 1 ML CARP\\VIAL IV STA (12:29)
[2023-03-05] MEDS ORDERED: SODIUM CHLORIDE 0.9% 500 ML IV ONE (12:30)
[2023-03-05 12:50] LABS: Hematocrit (blood only) 48.5 % (37.0-47.0); Mean Corpuscular Hemoglobin 28.5 pg (25.0-34.0); Mean Corpuscular Volume 86.3 fL (80.0-100.0); Mean Platelet Volume 11.5 fL (9.4-12.4); Platelet Count 350 K/uL (130-400); RDW Coefficient of Variation 15.6 % (11.5-14.5); RDW Standard Deviation 48.6 fL (36.4-46.3); Red Blood Count 5.62 M/uL (4.20-5.40); White Blood Count 17.04 K/ul (4.8-10.8)
--- NOTE | 2023-03-05 12:55 | XRay Report ---
XR foot RT 2V CLINICAL HISTORY: wounds, necrosis TECHNIQUE: 3 views of the right foot were obtained. Comparison: Comparison is made to foot radiograph 02/25/2021 FINDINGS: No evidence of bony erosion is seen. The joint spaces are well preserved. Subcutaneous emphysema is s een in the medial and plantar tissues. IMPRESSION: Cellulitis with subcutaneous emphysema concerning for gas-forming infection. No radiographic evidence of osteomyelitis. If clinical concern remains, MRI is a more sensitive modality. ACT 112: Negative or not required by law. Electronically signed by: Mateo Nugyen M.D. 03/05/2023 12:54 PM
[2023-03-05 13:14] LABS: Alanine Aminotransferase 8 U/L (7-52); Bilirubin,Total 1.2 mg/dl (0.2-1.0); Blood Urea Nitrogen 24 mg/dl (6-23); Calcium 8.9 mg/dl (8.6-10.3); Carbon Dioxide 27 mmol/L (21-32); Chloride 102 mmol/L (98-107); Creatinine Clr Calc Pharmacy 61.6 ml/min; Est GFR (African American) 75.6 ml/min; Est GFR (Non-African American) 65.2 ml/min; Glucose 118 mg/dl (70-99(Fasting)); Total Protein 7.4 gm/dl (6.0-8.3); Troponin I High Sensitivity 20.8 pg/ml (0-14)
[2023-03-05] MEDS ORDERED: CLINDAMYCIN/D5W 600 MG/50 ML PREMIX BAG IV ONE (13:15)
[2023-03-05] MEDS ORDERED: PIPERACILLIN/TAZOBACTAM 4.5 GM/100 ML BAG IV ONE (13:25)
[2023-03-05 13:26] LABS: Appearance Urine Turbid (Clear); Bacteria Urine Automated 4+ (Negative); Blood Urine 1+ (Negative); Color Urine Dark Yellow; Epithelial Cell Urine Auto 20-30 /lpf (0-5); Glucose Urine UA Negative (Negative); Ketones Urine Trace (Negative); Leukocyte Esterase Urine 2+ (Negative); Nitrite Urine Positive (Negative); Protein Urine 2+ (Negative); RBC Urine Automated 0-4 /hpf (0-4); Specific Gravity Urine 1.023 (1.000-1.030); Urobilinogen Urine Positive (Negative); WBC Urine Automated >30 /hpf (0-5)
[2023-03-05 13:28] LABS: Basophils # (auto) 0.04 K/uL (0.00-0.20); Basophils % (auto) 0.2 %; Eosinophils # (auto) 0.01 K/uL (0.00-0.50); Eosinophils % (auto) 0.1 %; Immature Granulocytes # (auto) 0.11 K/uL (0.01-0.20); Immature Granulocytes % (auto) 0.6 %; Lymphocytes # (auto) 0.58 K/uL (1.20-3.40); Lymphocytes % (auto) 3.4 %; Monocytes # (auto) 0.79 K/uL (0.11-0.59); Monocytes % (auto) 4.6 %; Neutrophils # (auto) 15.51 K/uL (1.40-6.50); Neutrophils % (auto) 91.1 %; Polychromasia 1+
--- NOTE | 2023-03-05 13:31 | History & Physical Report ---
Date of Service March 05, 2023 Assessment & Plan (1) Gangrenous toe: (2) Severe sepsis: (3) Acute UTI: (4) Lactic acidosis: (5) Cellulitis of right foot: (6) T2DM (type 2 diabetes mellitus): (7) PAD (peripheral artery disease): (8) HTN (hypertension): (9) HLD (hyperlipidemia): Plan This is a 72-year-old female who has a significant past medical history of T2DM, HTN, HLD, PAD and depression with anxiety who presents to ED secondary to R 4th black toe and redness to foot x 1 week. Severe sepsis Gangrenous toe Cellulitis of right foot Lactic acidosis Admit to PCU Consult general surgery -discussed with Dr. Goss who also saw patient Plan to go to OR for debridement of plantar hematoma, she will need amp of necrotic toe consult Podiatry Broad-spectrum antibiotics with IV daptomycin, clindamycin and Zosyn Consult wound care Give additional 1000 ml bolus in ED along with 1 g IV Tylenol Will need repeat lactic acid and she likely will need additional IV fluid Await blood, urine and wound culture Consult infectious disease Acute UTI Await urine culture Empiric antibiotics as above Elevated troponin likely demand ischemia in setting of sepsis echo from outpatient 2019 revealed preserved EF Hypomagnesemia replete T2DM lantus/novolog per protocol recent a1c 6.9 hold metformin/glipizde HTN continue amlodipine, lisinopril given elevated BP she did not take her meds yet today will re eval post op HLD pt prescribed high dose statin 80mg, unsure if taking hold while on dapto PAD follows vascular surg at [facility] prior re vascularization to RLE DVT ppx: will hold off for now, post operatively will add chemical prophylaxis with heparin once appropriate FULL CODE PCP: Dr. Light Dispo: PCU, cbc, cmp, mag in a.m. Pt med list was reviewed and placed in APSX. Pt was seen and examined in collaboration with Dr. Huerta, please see addendum History of Present Illness Chief Complaint: Right 4th toe black and redness to foot x 1 week. Primary Care Provider: Dr. Polina Light This is a 72-year-old female who has a significant past medical history of T2DM, HTN, HLD, PAD and depression with anxiety who presents to ED secondary to R 4th black toe and redness to foot x 1 week. In regards to patient's vascular disease she follows with Dr. Mckeon of vascular surgery at [facility]. She is "s/p percutaneous transluminal angioplasty of the right anterior tibial artery(2.5 x 40 mm [place] balloon), percutaneous transluminal angioplasty of the right tibioperoneal trunk(2.5 x 40 mm [place] balloon) and percutaneous transluminal angioplasty and stenting of the right superficial femoral artery and popliteal artery(6 x 100 mm and 6 x 40 mm Porsha stents, post-dilated to 5 mm) by Dr. Mckeon 06/21/2021." She comes in with her Right 4th toe being back. This has been present for 1 week. She also states a couple days ago she kicked a table and since then has noticed drainage coming from her foot. She feels a slight decrease in sensation to her R foot. She has multiple wounds on her legs and open wound to L bunion. She tends to pick her scabs and wounds. She denies f/c/s, dizziness, lightheaded, chest pain, sob, n/v/d, abd pain. Her boyfriend is at bedside. She denies ever having similar sx in past. In ED patient met severe sepsis criteria secondary to leukocytosis, tachycardia and lactic acidosis. She was febrile with temp of 38.3. Her initial lactic acid was 3.4.Her WBC was elevated at 17k, H&H 16 and 48.5 platelet 350, BUN 24, c reatinine 0.89, glucose 118, troponin 20 and urinalysis concerning for infection. Respiratory bio fire was negative. She underwent foot x-ray which revealed cellulitis with subcutaneous emphysema concerning for gas-forming infection. She was empirically started on IV Zosyn, clindamycin and cefepime. He also was administered 500 mL of IV fluid. Allergies Allergy/AdvReac Type Severity Reaction Status Date / Time No Known Allergies Allergy Verified 03/28/21 02:27 Home Medications Medication Instructions Recorded Confirmed Type amlodipine 5 mg tablet 5 mg PO DAILY 03/05/23 03/05/23 History aspirin 81 mg tablet,delayed 81 mg PO DAILY 03/05/23 03/05/23 History release atorvastatin 80 mg tablet 80 mg PO HS 03/05/23 03/05/23 History clopidogrel 75 mg tablet 75 mg PO DAILY 03/05/23 03/05/23 History glipizide 5 mg tablet 5 mg PO BID 03/05/23 03/05/23 History lisinopril 20 20 - 25 tab PO DAILY 03/05/23 03/05/23 History mg-hydrochlorothiazide 25 mg tablet metformin 1,000 mg tablet 1,000 mg PO BIDM 03/05/23 03/05/23 History Past Med/Surg History Medical History T2DM (type 2 diabetes mellitus) HLD (hyperlipidemia) PAD (peripheral artery disease) Mr. Chatterjee returns to clinic s/p percutaneous transluminal angioplasty of the right anterior tibial artery (2.5 x 40 mm [place] balloon), percutaneous transluminal angioplasty of the right tibioperoneal trunk (2.5 x 40 mm [place] balloon) and percutaneous transluminal angioplasty and stenting of the right superficial femoral artery and popliteal artery (6 x 100 mm and 6 x 40 mm Porsha stents, post-dilated to 5 mm) by Dr. Mckeon 06/21/2021. Psoriasis No pertinent family history HTN (hypertension) Syncope and collapse Head injury Surgical History Hx of lithotripsy Hx of angioplasty Family History Mother Cancer brain cancer age 76 Father Diabetes Social History Smoking Status: Never smoker Preferred Language: [place] Communication Ability: Effective Visual Impairment: No Limitations Hearing Ability: Normal marital status: / Feels Safe at Home: Yes Review of Systems Review of Systems: All systems reviewed & are unremarkable except as noted in HPI & below Physical Exam Physical Exam: please refer to Dr. Huerta addendum for physical exam findings Results & Data Results & Data Vital Signs (Past 12 Hours) Vital Signs Temp Pulse Pulse Resp BP BP Pulse Ox 03/05/23 13:00 127 H 24 140/105 H 94 03/05/23 12:45 130 H 22 139/108 H 94 03/05/23 12:20 141 H 29 H 100 03/05/23 12:00 138 H 28 H 98 03/05/23 11:58 100 03/05/23 11:35 36.9 C 138 H 28 H 164/119 H 100 03/05/23 11:33 36.9 C 133 H 18 182/116 H O2 Del Method O2 Flow Rate 03/05/23 13:00 Room Air 03/05/23 12:45 Room Air 03/05/23 12:20 Room Air 03/05/23 12:00 Room Air 03/05/23 11:58 Room Air 03/05/23 11:35 Room Air 03/05/23 11:33 116 Laboratory Results I have independently reviewed and interpreted patient's admitting labs including CBC, CMP, PTT, PT/INR, mag and troponin. Diagnostic Findings Chest X-Ray 03/05/23 11:35 XR chest 1V not portable CLINICAL HISTORY: Sepsis. COMPARISON STUDY: Chest radiograph and chest CT April 15, 2017. FINDINGS: There is no pneumothorax. Small right pleural effusion is present. Skin folds project over the chest. No consolidation is identified. There is moderate cardiomegaly. Mild interstitial thickening is present. IMPRESSION: 1. Cardiomegaly with mild interstitial pulmonary edema. 2. Small right pleural effusion. ACT 112: Negative or not required by law. Electronically signed by: Keanu Gil M.D. 03/05/2023 1:29 PM Foot X-Ray 03/05/23 11:36 XR foot RT 2V CLINICAL HISTORY: wounds, necrosis TECHNIQUE: 3 views of the right foot were obtained. Comparison: Comparison is made to foot radiograph 02/25/2021 FINDINGS: No evidence of bony erosion is seen. The joint spaces are well preserved. Subcutaneous emphysema is seen in the medial and plantar tissues. IMPRESSION: Cellulitis with subcutaneous emphysema concerning for gas-forming infection. No radiographic evidence of osteomyelitis. If clinical concern remains, MRI is a more sensitive modality. ACT 112: Negative or not required by law. Electronically signed by: Mateo Nguyen M.D. 03/05/2023 12:54 PM Medications Administered Medication List Discontinued Medications Cefepime HCl (Maxipime) 2,000 mg in 20 mls @ 5 mls/min IV NOW STA; Protocol Stop: 03/05/23 12:07 Last Admin: 03/05/23 13:01 Dose: 5 mls/min Documented By: ASMITA Sodium Chloride (Nss) 500 mls @ 999 mls/hr IV .Q31M ONE Stop: 03/05/23 13:00 Last Infusion: 03/05/23 14:11 Dose: Infused Documented By: Admin: 03/05/23 12:36 Dose: 999 mls/hr Documented By: ASMITA Clindamycin Phosphate (Cleocin/D5w) 600 mg in 50 mls @ 100 mls/hr IV NOW ONE Stop: 03/05/23 13:44 Last Infusion: 03/05/23 14:11 Dose: Infused Documented By: Admin: 03/05/23 13:25 Dose: 100 mls/hr Documented By: ASMITA Morphine Sulfate (Morphine Sulfate 4 Mg/Ml 1 Ml Carp\\Vial) 4 mg IV NOW STA Stop: 03/05/23 12:30 Last Admin: 03/05/23 12:35 Dose: 4 mg Documented By: ASMITA ECG Rate (beats per minute): 133 Additional Comments: I have independently reviewed and interpreted patient's admitting EKG which revealed: wide complex tachycardia with freq PVC, RBBB, qtc 559ms COVID-19 Results Results COVID-19 Adm Lab Results: RBC 5.62 M/uL (4.20-5.40) H 03/05/23 WBC 17.04 K/ul (4.8-10.8) H 03/05/23 Hgb 16.0 g/dl (12.0-16.0) 03/05/23 Hct 48.5 % (37.0-47.0) H 03/05/23 Plt Count 350 K/uL (130-400) 03/05/23 Neutrophils (%) (Auto) 91.1 % 03/05/23 Lymphocytes (%) (Auto) 3.4 % 03/05/23 Monocytes # (Auto) 0.79 K/uL (0.11-0.59) H 03/05/23 Eosinophils # (Auto) 0.01 K/uL (0.00-0.50) 03/05/23 Immature Granulocyte % (Auto) 0.6 % 03/05/23 Neutrophils # (Auto) 15.51 K/uL (1.40-6.50) H 03/05/23 Lymphocytes # (Auto) 0.58 K/uL (1.20-3.40) L 03/05/23 Monocytes # (Auto) 0.79 K/uL (0.11-0.59) H 03/05/23 Eosinophils # (Auto) 0.01 K/uL (0.00-0.50) 03/05/23 Basophils # (Auto) 0.04 K/uL (0.00-0.20) 03/05/23 Immature Granulocyte # (Auto) 0.11 K/uL (0.01-0.20) 3 Polychromasia 1+ 03/05/23 Na 141 mmol/L (136-145) 03/05/23 K 3.2 mmol/L (3.5-5.1) L 03/05/23 Cl 102 mmol/L (98-107) 03/05/23 CO2 27 mmol/L (21-32) 03/05/23 Anion Gap TNP 03/05/23 BUN 24 mg/dl (6-23) H 03/05/23 Creatinine 0.89 mg/dl (0.6-1.2) 03/05/23 BUN/Creatinine Ratio 27.0 (10-20) H 03/05/23 Glucose Level 118 mg/dl (70-99(Fasting)) H 03/05/23 Ca 8.9 mg/dl (8.6-10.3) 03/05/23 Total Bilirubin 1.2 mg/dl (0.2-1.0) H 03/05/23 Direct Bilirubin 0.6 mg/dl (0-0.2) H 03/05/23 AST/SGOT 13 U/L (13-39) 03/05/23 ALT/SGPT 8 U/L (7-52) 03/05/23 Alkaline Phosphatase 126 U/L (34-104) H 03/05/23 Total Protein 7.4 gm/dl (6.0-8.3) 03/05/23 Albumin 2.6 gm/dl (3.4-5.0) L 03/05/23 Total CK 23 U/L (26-192) L 03/05/23 Procalcitonin 1.37 ng/ml (0-0.5) H 03/05/23 Adenovirus (PCR) Not Detected (NotDetected) 03/05/23 B. parapertussis DNA (PCR) Not Detected (NotDetected) 02/14 04/07 B. pertussis DNA (PCR) Not Detected (NotDetected) 03/05/23 C. pneumoniae DNA (PCR) Not Detected (NotDetected) 3 Coronavirus Type OC43 (PCR) Not Detected (NotDetected) Coronavirus Type HKU1 (PCR) Not Detected (NotDetected) Coronavirus Type 229E (PCR) Not Detected (NotDetected) COVID-19 PCR Not Detected (NotDetected) 03/05/23 Coronavirus Type NL63 (PCR) Not Detected (NotDetected) Human Metapneumovirus (PCR) Not Detected (NotDetected) Influenza Virus Type A (PCR) Not Detected (NotDetected) Influenza Virus Type B (PCR) Not Detected (NotDetected) M. pneumoniae (PCR) Not Detected (NotDetected) 03/05/23 Parainfluenza Type 1 (PCR) Not Detected (NotDetected) 02/14 04/07 Parainfluenza Type 2 (PCR) Not Detected (NotDetected) 02/14 04/07 Parainfluenza Type 3 (PCR) Not Detected (NotDetected) 02/14 04/07 Parainfluenza Type 4 (PCR) Not Detected (NotDetected) 02/14 04/07 RSV (PCR) Not Detected (NotDetected) 03/05/23 Enterovirus/Rhinovirus (PCR) Not Detected (NotDetected) Chest X-Ray 03/05/23 Code Status & VTE Plan Code Status FULL CODE Supervising Physician Co-Signing Physician Notes I have seen and discussed the case with the collaborating MILTON. I agree with the above H&P. I have reviewed and confirmed the patients medical history, the findings on physical examination, and the patients diagnosis and treatment plan with Florin ROSE and agree with the information documented. In short, Ms. Chatterjee is a 72 year old woman with a past medical history of HTN, DMTII, severe PAD, and medication non-compliance who is admitted due to concern of sepsis secondary to cellulitis, and ?necrotizing fasciitis. Patient reports hitting foot on table, with subsequent discoloration of right 4th toe then progression of wound and pain. She states that there were multiple issues with her medications and pharmacy changes, as well as suggesting that she does not take her medications as directed taking some "three or so times daily" and then "spacing it out" as the script comes to an end before refill date. Patient poor historian overall and tends to digress. Physical exam GENERAL APPEARANCE: AxOx4, disheveled in appearance HEENT: NC, AT. MMM. EOMI, clear conjunctiva, oropharynx clear. lesion of excoriation on left side of nasal bridge NECK: Supple without lymphadenopathy. No stiffness or restricted ROM. HEART: tachycardic LUNGS: CTAB, moving air well. No crackles or wheezes are heard. ABDOMEN: Soft, nontender, nondistended with good bowel sounds heard. BACK: No CVAT, no obvious deformity. Multiple scabbed over excoriations without signs over superimposed infection EXTREMITIES: bilateral nonpitting edema, L>R NEUROLOGICAL: Grossly nonfocal. Alert and oriented, moving all 4 extremities. CN not formally tested but appear grossly intact. Skin: multiple round/coin-like excoriations of lower extremities in various stages of healing; left foot with scabbed over wound of first metatarsal; right foot notably edematous with erythematous swelling and scattered blister like lesions, 4th digit necrotic, large hemorrhagic bullous blister formation on sole of foot with tail like tracking from arch to 4th digit, exquisitely foul smelling XRAY with concern for gas formation #Sepsis secondary to cellulitis/UTI #Severe cellulitis, concern for necrotizing fasciitis -Surgery consulted--plan for I/D in OR -Zosyn, Dapto, Clindamycin for coverage for necrotizing fasciitis, follow cultures and narrow as able -Plan for podiatry consult for necrotic digit -EDD/TBI ordered 2/2 hx of PAD #Medication noncompliance -Holding home medications and resume as able; will require counselling on medications and proper using once discharge regimen established. Consider HH Rest of plan as above.
[2023-03-05 13:33] LABS: Bilirubin Urine 1+ (Negative)
[2023-03-05] MEDS ORDERED: ACETAMINOPHEN 500 MG TAB PO STA (13:38)
[2023-03-05] MEDS ORDERED: SODIUM CHLORIDE 0.9% 1,000 ML IV ONE (14:16)
[2023-03-05 14:20] LABS: Adenovirus PCR Not Detected (NotDetected); Bordetella parapertussis PCR Not Detected (NotDetected); Bordetella pertussis PCR Not Detected (NotDetected); Chlamydia pneumoniae PCR Not Detected (NotDetected); Coronavirus 229E PCR Not Detected (NotDetected); Coronavirus CoV-2 (COVID19)PCR Not Detected (NotDetected); Coronavirus HKU1 PCR Not Detected (NotDetected); Coronavirus NL63 PCR Not Detected (NotDetected); Coronavirus OC43PCR Not Detected (NotDetected); Human Metapneumovirus PCR Not Detected (NotDetected); Influenza A PCR Not Detected (NotDetected); Influenza B PCR Not Detected (NotDetected); Mycoplasma pneumoniae PCR Not Detected (NotDetected); Parainfluenza Virus 1 PCR Not Detected (NotDetected); Parainfluenza Virus 2 PCR Not Detected (NotDetected); Parainfluenza Virus 3 PCR Not Detected (NotDetected); Parainfluenza Virus 4 PCR Not Detected (NotDetected); Respiratory Syncytial VirusPCR Not Detected (NotDetected); Rhinovirus/Enterovirus PCR Not Detected (NotDetected)
[2023-03-05] MEDS ORDERED: ACETAMINOPHEN 1,000 MG/100 ML VIAL IV STA (14:31)
[2023-03-05] MEDS ORDERED: ACETAMINOPHEN 1000 MG/100 ML IV IV ONE (14:36)
--- NOTE | 2023-03-05 14:39 | Anesthesiology Consultation ---
Date of Service March 05, 2023 Assessment & Plan Chart Review Chart Review: Acceptable Risk for Surgery (urgent procedure) History Surgery Operation Date: 03/05/23 11:45 Proposed Procedures p Incision and Drainage Infected Hematoma Right Foot Plantar Surface - Lm Steele DO Height/Weight Height: 5 ft 7 in Weight: 75.8 kg Allergies Allergy/AdvReac Type Severity Reaction Status Date / Time No Known Allergies Allergy Verified 03/28/21 02:27 Medications Home Medications Medication Instructions Recorded Confirmed Last Taken metformin 1,000 mg tablet 1,000 mg PO BIDM 07/05/18 03/28/21 09/21/18 atorvastatin 80 mg tablet 80 mg PO QAM 09/21/18 03/28/21 09/21/18 glipizide 5 mg tablet 5 mg PO BID 09/21/18 03/28/21 09/21/18 ibuprofen 200 mg tablet 200 mg PO Q6H PRN Pain 09/21/18 03/28/21 09/20/18 22:30 400 mg lisinopril 20 1 tab PO QAM 09/21/18 03/28/21 09/21/18 mg-hydrochlorothiazide 12.5 mg tablet metoprolol succinate 25 mg 25 mg PO QAM 09/21/18 03/28/21 09/21/18 tablet,extended release 24 hr cyclobenzaprine 5 mg tablet 5 - 10 mg PO Q8H PRN Spasms 02/09/19 03/28/21 Unknown clobetasol 0.05 % topical ointment 1 applic topical UD 03/28/21 03/28/21 Unknown diclofenac sodium 1 % topical gel 4 gm topical QID PRN Pain 03/28/21 03/28/21 Unknown ketoconazole 2 % shampoo 1 applic topical UD 03/28/21 03/28/21 Unknown prednisone 20 mg tablet 20 mg PO BID 03/28/21 03/28/21 Unknown Active Medications Generic Name Dose Route Start Last Admin Trade Name Freq PRN Reason Stop Dose Admin Sodium Chloride 1,000 mls @ 999 mls/hr 03/05/23 14:16 03/05/23 14:29 Nss IV 03/05/23 15:16 999 mls/hr .Q1H1M ONE Administration Past Medical History Medical History T2DM (type 2 diabetes mellitus) HLD (hyperlipidemia) PAD (peripheral artery disease) Mr. Chatterjee returns to clinic s/p percutaneous transluminal angioplasty of the right anterior tibial artery (2.5 x 40 mm [place] balloon), percutaneous transluminal angioplasty of the right tibioperoneal trunk (2.5 x 40 mm [place] balloon) and percutaneous transluminal angioplasty and stenting of the right superficial femoral artery and popliteal artery (6 x 100 mm and 6 x 40 mm [place] stents, post-dilated to 5 mm) by Dr. Mckeon 06/21/2021. Psoriasis No pertinent family history HTN (hypertension) Syncope and collapse Head injury Past Family History Family History Mother Cancer brain cancer age 76 Father Diabetes Past Surgical History Surgical History Hx of lithotripsy Hx of angioplasty Social History Smoking Status: Never smoker Physical Exam Vital Signs Last Vital Signs Temp 38.3 C H 03/05/23 14:15 Pulse 120 H 03/05/23 14:15 Resp 25 H 03/05/23 14:15 BP 133/95 03/05/23 14:15 Pulse Ox 94 03/05/23 14:15 O2 Del Method Room Air 03/05/23 14:15 O2 Flow Rate 116 03/05/23 11:33 Testing Laboratory Results 03/05/23 12: Urine Color Dark Yellow 03/05/23 13:03 Urine Appearance Turbid (Clear) A 03/05/23 13:03 Urine pH 6.0 (4.5-7.5) 03/05/23 13:03 Ur Specific [place] 1.023 (1.000-1.030) 03/05/23 13:03 Urine Protein 2+ (Negative) H 03/05/23 13:03 Urine Glucose (UA) Negative (Negative) 03/05/23 13:03 Urine Ketones Trace (Negative) H 03/05/23 13:03 Urine Nitrite Positive (Negative) A 03/05/23 13:03 Ur Leukocyte Esterase 2+ (Negative) H 03/05/23 13:03 Urine WBC (Auto) >30 /hpf (0-5) H 03/05/23 13:03 Urine RBC (Auto) 0-4 /hpf (0-4) 03/05/23 13:03 U Hyaline Cast (Auto) 1-5 /lpf (0-5) 03/05/23 13:03 U Epithel Cells (Auto) 20-30 /lpf (0-5) H 03/05/23 13:03 Urine Bacteria (Auto) 4+ (Negative) H 03/05/23 13:03 troponin pending lactate 3.4 Electrocardiogram Findings: + RBBB wide QRS tachycardia 130's possible anterior infarct possible inferior infarct frequent PVC's Chest X-Ray Date: 03/05/23 Findings: + cardiomegaly mild pulmonary edema
--- NOTE | 2023-03-05 14:39 | XRay Report ---
XR foot LT 2V CLINICAL HISTORY: wounds, necrosis. Assess for ostial myelitis. COMPARISON STUDY: None. FINDINGS: Lucency at the head of the proximal phalanx of the left fifth toe. This may represent a non displaced fracture. This is technically age indeterminate but likely old. Otherwise, no acute fractur e or dislocation within the left foot. Mild degenerative changes within the left foot. The bones are osteopenic. Vascular calcifications are noted. There are few scattered skin ulcerations at the forefo ot and heel. No underlying bony destruction to suggest an osteomyelitis. Plantar heel spur. Soft tiss ue and bony bunion is noted. IMPRESSION: 1. A few scattered skin ulcerations within the forefoot and heel. No underlying bony destruction to s uggest an osteomyelitis. 2. Lucency at the head of the proximal phalanx of the left fifth toe. This may represent a nondisplac ed fracture. This is technically age indeterminate but likely old. Recommend correlation for pain at this location to assess for acute injury. ACT 112: Negative or not required by law. Electronically signed by: Brian Jackson M.D. 03/05/2023 2:37 PM
[2023-03-05] MEDS: DAPTOmycin 375 MG in SYRINGE 0 ML IV SCH (14:43)
[2023-03-05 14:52] LABS: Albumin Level 2.6 gm/dl (3.4-5.0); Bilirubin Direct 0.6 mg/dl (0-0.2); Magnesium 1.4 mg/dl (1.7-2.4); Potassium 3.2 mmol/L (3.5-5.1)
--- NOTE | 2023-03-05 15:08 | Surgery Consultation ---
Date of Consultation March 05, 2023 Assessment & Plan (1) Cellulitis of right foot: Infection present OR for I&D today, no privelages for amputation therefor consult podiatry for consultation and potential amputation History of Present Illness Reason for Consultation: Right foot infection History of Present Illness Patient is a 72 y/o F with a PMHx of DM, PAD with re-vascularization 1-2 years ago, HTN, anxiety who presents for worsened right foot swelling, pain and discoloration after banging her foot on a coffee table about a week ago. She is febrile in the ED, tachy with leukocytosis over 17,000 and mild lactic acidosis. 3 view foot X-ray reveals subcutaneous emphysema at the plantar surface. She denies feeling fevers or chills, no N/V D. Allergies Allergy/AdvReac Type Severity Reaction Status Date / Time No Known Allergies Allergy Verified 03/28/21 02:27 Home Medications Medication Instructions Recorded Confirmed Type amlodipine 5 mg tablet 5 mg PO DAILY 03/05/23 03/05/23 History aspirin 81 mg tablet,delayed 81 mg PO DAILY 03/05/23 03/05/23 History release atorvastatin 80 mg tablet 80 mg PO HS 03/05/23 03/05/23 History clopidogrel 75 mg tablet 75 mg PO DAILY 03/05/23 03/05/23 History glipizide 5 mg tablet 5 mg PO BID 03/05/23 03/05/23 History lisinopril 20 20 - 25 tab PO DAILY 03/05/23 03/05/23 History mg-hydrochlorothiazide 25 mg tablet metformin 1,000 mg tablet 1,000 mg PO BIDM 03/05/23 03/05/23 History Patient History Medical History T2DM (type 2 diabetes mellitus) HLD (hyperlipidemia) PAD (peripheral artery disease) Mr. Chatterjee returns to clinic s/p percutaneous transluminal angioplasty of the right anterior tibial artery (2.5 x 40 mm [place] balloon), percutaneous tr ansluminal angioplasty of the right tibioperoneal trunk (2.5 x 40 mm [place] balloon) and percutaneous transluminal angioplasty and stenting of the right superficial femoral artery and popliteal artery (6 x 100 mm and 6 x 40 mm Porsha stents, post-dilated to 5 mm) by Dr. Mckeon 06/21/2021. Psoriasis No pertinent family history HTN (hypertension) Syncope and collapse Head injury Surgical History Hx of lithotripsy Hx of angioplasty Family History Mother Cancer brain cancer age 76 Father Diabetes Social History Smoking Status: Never smoker Preferred Language: Spanish Communication Ability: Effective Visual Impairment: No Limitations Hearing Ability: Normal marital status: / Feels Safe at Home: Yes Review of Systems Review of Systems: as above Physical Exam Constitutional: average body habitus; no altered mental status, not in distress and not diaphoretic Respiratory: normal respiratory effort; no respiratory distress, no labored breathing and does not use accessory muscles Cardiovascular: tachy Skin: Multiple ulcerations with central necrosis over legs and feet b/l. Pickers scars and ulceration noted swelling b/l worse at right foot with 4th digit gangrenous and black Elongated dark/black bullae over plantar surface possible infected hematoma and/or additional gangrenous tissue Results & Data Vital Signs (Past 12 Hours) Vital Signs Temp Pulse Pulse Resp BP BP Pulse Ox 03/05/23 14:45 03/05/23 14:40 120 H 20 165/100 H 98 03/05/23 14:40 38.4 C H 03/05/23 14:30 126 H 24 164/104 H 98 03/05/23 14:21 125 H 36 H 138/110 H 95 03/05/23 14:15 38.3 C H 120 H 25 H 133/95 94 03/05/23 14:10 124 H 31 H 133/95 95 03/05/23 14:01 124 H 26 H 142/104 H 98 03/05/23 14:00 38.3 C H 124 H 24 142/104 H 95 03/05/23 13:50 156/96 H 03/05/23 13:45 38.3 C H 126 H 24 156/96 H 94 03/05/23 13:40 123 H 26 H 155/94 H 03/05/23 13:30 124 H 23 132/96 94 03/05/23 13:30 38.4 C H 124 H 22 155/94 H 93 03/05/23 13:24 126 H 03/05/23 13:20 127 H 21 148/104 H 93 03/05/23 13:15 38.3 C H 134 H 22 148/104 H 94 03/05/23 13:10 124 H 25 H 143/99 H 95 03/05/23 13:00 127 H 21 140/105 H 94 03/05/23 13:00 127 H 24 140/105 H 94 03/05/23 12:50 131 H 38 H 140/113 H 90 03/05/23 12:45 130 H 22 139/108 H 94 03/05/23 12:40 131 H 29 H 139/108 H 99 03/05/23 12:30 136 H 30 H 171/129 H 99 03/05/23 12:20 141 H 29 H 100 03/05/23 12:17 140 H 25 H 164/119 H 100 03/05/23 12:00 138 H 28 H 98 03/05/23 11:58 100 03/05/23 11:35 36.9 C 138 H 28 H 164/119 H 100 03/05/23 11:33 36.9 C 133 H 18 182/116 H O2 Del Method O2 Flow Rate 03/05/23 14:45 Room Air 03/05/23 14:40 Room Air 03/05/23 14:40 03/05/23 14:30 Room Air 03/05/23 14:21 Room Air 03/05/23 14:15 Room Air 03/05/23 14:10 Room Air 03/05/23 14:01 Room Air 03/05/23 14:00 Room Air 03/05/23 13:50 03/05/23 13:45 Room Air 03/05/23 13:40 03/05/23 13:30 Room Air 03/05/23 13:30 Room Air 03/05/23 13:24 03/05/23 13:20 Room Air 03/05/23 13:15 Room Air 03/05/23 13:10 Room Air 03/05/23 13:00 Room Air 03/05/23 13:00 Room Air 03/05/23 12:50 Room Air 03/05/23 12:45 Room Air 03/05/23 12:40 Room Air 03/05/23 12:30 Room Air 03/05/23 12:20 Room Air 03/05/23 12:17 Room Air 03/05/23 12:00 Room Air 03/05/23 11:58 Room Air 03/05/23 11:35 Room Air 03/05/23 11:33 116 PG Care Time/CCT Total # of Minutes Spent Total Time Spent with Patient: Total time spent is greater than 50% in coordination of care (as documented) at patient's floor/unit and/or counseling patient: Coding Level of Care Code 53075 IN/OBS CONSULT LVL 2,35M Diagnoses Cellulitis of right foot L03.115
[2023-03-05] MEDS ORDERED: LIDOCAINE 2% 2 ML VIAL/AMP(20MG/ML) INFIL ONE (15:45)
[2023-03-05] MEDS ORDERED: ONDANSETRON INJ 2 MG/ML 2 ML VIAL ONE (15:45)
[2023-03-05] MEDS ORDERED: PROPOFOL IV EMULSION 10 MG/ML 20 ML VIAL IV ONE (15:45)
[2023-03-05] MEDS ORDERED: fentaNYL citrate PF 100 MCG/2 ML VIAL ONE ×2 (15:46→16:30)
[2023-03-05] MEDS ORDERED: LIDOCAINE 1% LOCAL 20 ML VIAL ONE (16:29)
[2023-03-05] MEDS ORDERED: VANCOMYCIN HCL 1000MG/20ML VIAL ONE ×2 (16:29→17:39)
[2023-03-05] MEDS ORDERED: PHENYLEPHRINE 100MCG/ML 10ML SYR IV ONE (16:55)
[2023-03-05] MEDS ORDERED: VASOPRESSIN 20 UNIT/ML VIAL ONE (16:55)
[2023-03-05] MEDS ORDERED: GENTAMICIN SULFATE 40 MG/ML 2 ML VIAL ONE (17:32)
--- NOTE | 2023-03-05 18:02 | Orthopedic Consultation ---
Date of Consultation March 05, 2023 Assessment & Plan (1) Cellulitis of right foot: Patient seen and examined. Proceeded promptly to OR with general surgery for wound debridement. Patient will require right fourth ray resection and consent obtained from emeraldance. Thank you for allowing me to participate in the care of this Patient. (2) Gangrenous toe: (3) T2DM (type 2 diabetes mellitus): (4) Severe sepsis: History of Present Illness Attending Physician: Lm Steele DO History of Present Illness Patient is 72-year-old female who presented to [facility] ED for multiple lower extremity wounds with necrosis. History obtained from prior documentation. Patient has a past medical history significant for Type II diabetes, PAD, Psorsis, HTN, HLD. 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 Allergies Allergy/AdvReac Type Severity Reaction Status Date / Time No Known Allergies Allergy Verified 03/28/21 02:27 Home Medications Medication Instructions Recorded Confirmed Type amlodipine 5 mg tablet 5 mg PO DAILY 03/05/23 03/05/23 History aspirin 81 mg tablet,delayed 81 mg PO DAILY 03/05/23 03/05/23 History release atorvastatin 80 mg tablet 80 mg PO HS 03/05/23 03/05/23 History clopidogrel 75 mg tablet 75 mg PO DAILY 03/05/23 03/05/23 History glipizide 5 mg tablet 5 mg PO BID 03/05/23 03/05/23 History lisinopril 20 20 - 25 tab PO DAILY 03/05/23 03/05/23 History mg-hydrochlorothiazide 25 mg tablet metformin 1,000 mg tablet 1,000 mg PO BIDM 03/05/23 03/05/23 History Patient History Medical History T2DM (type 2 diabetes mellitus) HLD (hyperlipidemia) PAD (peripheral artery disease) Mr. Chatterjee returns to clinic s/p percutaneous transluminal angioplasty of the right anterior tibial artery (2.5 x 40 mm [place] balloon), percutaneous transluminal angioplasty of the right tibioperoneal trunk (2.5 x 40 mm [place] balloon) and percutaneous transluminal angioplasty and stenting of the right superficial femoral artery and popliteal artery (6 x 100 mm and 6 x 40 mm Porsha stents, post-dilated to 5 mm) by Dr. Mckeon 06/21/2021. Psoriasis No pertinent family history HTN (hypertension) Syncope and collapse Head injury Surgical History Hx of lithotripsy Hx of angioplasty Family History Mother Cancer brain cancer age 76 Father Diabetes Social History Smoking Status: Never smoker Preferred Language: Kazakh Communication Ability: Effective Visual Impairment: No Limitations Hearing Ability: Normal marital status: / Feels Safe at Home: Yes Physical Exam Constitutional: + frail appearing Neck: normal visual inspection Respiratory: normal respiratory effort Cardiovascular: Rate/Rhythm: regular rate and regular rhythm Musculoskeletal: Extremities: extremities normal to inspection Skin: + ulcer (RIght fourth toe necrotic with plantar tracking necrosis) Neurologic: moves all extremities (Absent epicritic sensation) Results & Data Vital Signs (Past 12 Hours) Vital Signs Temp Pulse Pulse Pulse Resp BP BP 03/05/23 15:13 37 C 122 H 22 159/115 H 03/05/23 14:45 03/05/23 14:40 120 H 20 165/100 H 03/05/23 14:40 38.4 C H 03/05/23 14:30 126 H 24 164/104 H 03/05/23 14:21 125 H 36 H 138/110 H 03/05/23 14:15 38.3 C H 120 H 25 H 133/95 03/05/23 14:10 124 H 31 H 133/95 03/05/23 14:01 124 H 26 H 142/104 H 03/05/23 14:00 38.3 C H 124 H 24 142/104 H 03/05/23 13:50 156/96 H 03/05/23 13:45 38.3 C H 126 H 24 156/96 H 03/05/23 13:40 123 H 26 H 155/94 H 03/05/23 13:30 124 H 23 132/96 03/05/23 13:30 38.4 C H 124 H 22 155/94 H 03/05/23 13:24 126 H 03/05/23 13:20 127 H 21 148/104 H 03/05/23 13:15 38.3 C H 134 H 22 148/104 H 03/05/23 13:10 124 H 25 H 143/99 H 03/05/23 13:00 127 H 21 140/105 H 03/05/23 13:00 127 H 24 140/105 H 03/05/23 12:50 131 H 38 H 140/113 H 03/05/23 12:45 130 H 22 139/108 H 03/05/23 12:40 131 H 29 H 139/108 H 03/05/23 12:30 136 H 30 H 171/129 H 03/05/23 12:20 141 H 29 H 03/05/23 12:17 140 H 25 H 164/119 H 03/05/23 12:00 138 H 28 H 03/05/23 11:58 03/05/23 11:35 36.9 C 138 H 28 H 164/119 H 03/05/23 11:33 36.9 C 133 H 18 182/116 H Pulse Ox O2 Del Method O2 Flow Rate 03/05/23 15:13 94 Room Air 03/05/23 14:45 Room Air 03/05/23 14:40 98 Room Air 03/05/23 14:40 03/05/23 14:30 98 Room Air 03/05/23 14:21 95 Room Air 03/05/23 14:15 94 Room Air 03/05/23 14:10 95 Room Air 03/05/23 14:01 98 Room Air 03/05/23 14:00 95 Room Air 03/05/23 13:50 03/05/23 13:45 94 Room Air 03/05/23 13:40 03/05/23 13:30 94 Room Air 03/05/23 13:30 93 Room Air 03/05/23 13:24 03/05/23 13:20 93 Room Air 03/05/23 13:15 94 Room Air 03/05/23 13:10 95 Room Air 03/05/23 13:00 94 Room Air 03/05/23 13:00 94 Room Air 03/05/23 12:50 90 Room Air 03/05/23 12:45 94 Room Air 03/05/23 12:40 99 Room Air 03/05/23 12:30 99 Room Air 03/05/23 12:20 100 Room Air 03/05/23 12:17 100 Room Air 03/05/23 12:00 98 Room Air 03/05/23 11:58 100 Room Air 03/05/23 11:35 100 Room Air 03/05/23 11:33 116
--- NOTE | 2023-03-05 18:02 | History & Physical Bridge Note ---
Date of Service March 05, 2023 History & Physical Bridge Note I have examined the patient, reviewed the History & Physical and in the interval since the performance of the History & Physical I have noted the following changes of clinical significance: no changes noted
--- NOTE | 2023-03-05 18:03 | Post Operative Brief Note ---
Immediate Post Op Note v1 Date of Surgery March 05, 2023 Pre & Post Diagnosis Operation Date: 03/05/23 11:45 Pre-Op Diagnosis: Right foot cellulitis I identified the patient and participated in the time-out.: Yes Procedure Operation Date: 03/05/23 11:45 Actual Procedures p Incision and Drainage Infected Hematoma Right Foot Plantar Surface - Lm Steele DO Surgeon Peter Teague DPM, MS Investment Accountant None Estimated Blood Loss 1 Findings Consistent with Post-Op Diagnosis Necrotic bone and soft tissue right foot Specimens Right fourth ray - micro and pathology
--- NOTE | 2023-03-05 18:07 | Operative Report ---
PG Post Operative Report Pre & Post Diagnosis Operation Date: 03/05/23 11:45 Pre-Op Diagnosis: Right foot cellulitis I identified the patient and participated in the time-out.: Yes Procedure Operation Date: 03/05/23 11:45 Actual Procedures p Incision and Drainage Infected Hematoma Right Foot Plantar Surface - Lm Steele DO Surgeon Lm Steele DO Brown Sourer Dr. Jasper Teague Estimated Blood Loss 1 Findings See Below Necrotic and gangrenous tissue across the plantar aspect of the foot extending to the fourth toe Specimens There were no specimens for my portion of the procedure. Please see Dr. Teague's dictation of his operative portion of this procedure. Anesthesia Type General Complications None Indications Gangrenous infection right foot Description of Procedure The patient was brought back to the operating room and placed on the operating room table in supine position. She was connected to cardiac and oxygen monitoring. Supplemental O2 and general anesthesia were administered. A secured airway was established. The right lower extremity was prepped to the knee and draped in typical sterile fashion. An incision was made over the large black bulla at the plantar aspect of the right foot. Necrotic tissue was immediately encountered and extruding from this incision.Soap fluid was also encountered. A wound culture was taken. Noting necrotic tissue the wound was further opened to a length of roughly 13 cm with plantar surface extending towards the base of the fourth toe and 6 cm in the medial to lateral direction. Tissue was thoroughly debrided exposing the plantar fascia. Dr. Teague presents to the operating room responding to the requests for podiatry consultation. Because I do not currently have active amputation privileges Dr. Teague had spoken to the patient's HIPAA approved number, obtained consent for amputation of the fourth toe and this part of the procedure as well as additional debridement can be found in his operative dictation. The patient tolerated the procedure well. She was awakened anesthesia and transferred recovery in stable condition I attest to the content of the Intraoperative Record and any orders documented therein. Any exceptions are noted below.
--- NOTE | 2023-03-05 18:35 | Anesthesiology Progress Note ---
Date of Service March 05, 2023 Anesthesia Post Procedure Vital Signs Vital Signs: Temp Pulse Pulse Pulse Resp BP BP 03/05/23 15:13 98.6 F 122 H 22 159/115 H 03/05/23 14:45 03/05/23 14:40 120 H 20 165/100 H 03/05/23 14:40 101.1 F H 03/05/23 14:30 126 H 24 164/104 H 03/05/23 14:21 125 H 36 H 138/110 H 03/05/23 14:15 100.9 F H 120 H 25 H 133/95 03/05/23 14:10 124 H 31 H 133/95 03/05/23 14:01 124 H 26 H 142/104 H 03/05/23 14:00 100.9 F H 124 H 24 142/104 H 03/05/23 13:50 156/96 H 03/05/23 13:45 100.9 F H 126 H 24 156/96 H 03/05/23 13:40 123 H 26 H 155/94 H 03/05/23 13:30 124 H 23 132/96 03/05/23 13:30 101.1 F H 124 H 22 155/94 H 03/05/23 13:24 126 H 03/05/23 13:20 127 H 21 148/104 H 03/05/23 13:15 100.9 F H 134 H 22 148/104 H 03/05/23 13:10 124 H 25 H 143/99 H 03/05/23 13:00 127 H 21 140/105 H 03/05/23 13:00 127 H 24 140/105 H 03/05/23 12:50 131 H 38 H 140/113 H 03/05/23 12:45 130 H 22 139/108 H 03/05/23 12:40 131 H 29 H 139/108 H 03/05/23 12:30 136 H 30 H 171/129 H 03/05/23 12:20 141 H 29 H 03/05/23 12:17 140 H 25 H 164/119 H 03/05/23 12:00 138 H 28 H 03/05/23 11:58 03/05/23 11:35 98.4 F 138 H 28 H 164/119 H 03/05/23 11:33 98.4 F 133 H 18 182/116 H Pulse Ox O2 Del Method O2 Flow Rate 03/05/23 15:13 94 Room Air 03/05/23 14:45 Room Air 03/05/23 14:40 98 Room Air 03/05/23 14:40 03/05/23 14:30 98 Room Air 03/05/23 14:21 95 Room Air 03/05/23 14:15 94 Room Air 03/05/23 14:10 95 Room Air 03/05/23 14:01 98 Room Air 03/05/23 14:00 95 Room Air 03/05/23 13:50 03/05/23 13:45 94 Room Air 03/05/23 13:40 03/05/23 13:30 94 Room Air 03/05/23 13:30 93 Room Air 03/05/23 13:24 03/05/23 13:20 93 Room Air 03/05/23 13:15 94 Room Air 03/05/23 13:10 95 Room Air 03/05/23 13:00 94 Room Air 03/05/23 13:00 94 Room Air 03/05/23 12:50 90 Room Air 03/05/23 12:45 94 Room Air 03/05/23 12:40 99 Room Air 03/05/23 12:30 99 Room Air 03/05/23 12:20 100 Room Air 03/05/23 12:17 100 Room Air 03/05/23 12:00 98 Room Air 03/05/23 11:58 100 Room Air 03/05/23 11:35 100 Room Air 03/05/23 11:33 116 Pain Intensity Right Foot: Pain Intensity: 6 Transfer of Care Handoff Completed per policy Notes Mental Status: alert / awake / arousable and participated in evaluation Patient Amnestic to Procedure: Yes Nausea / Vomiting: adequately controlled Pain: adequately controlled Airway Patency, RR, SpO2: stable & adequate BP & HR: stable & adequate Hydration State: stable & adequate Anesthetic Complications: no major complications apparent and Pt Satisfied with anesthetic care
[2023-03-05] MEDS ORDERED: POLYETHYLENE (MIRALAX) 17 GM PACK PO PRN (19:46)
[2023-03-05] MEDS ORDERED: GLUCOSE 10 TAB/TUBE PO PRN (19:46)
[2023-03-05] MEDS ORDERED: DEXTROSE 50% 50 ML SYRINGE IV PRN (19:46)
[2023-03-05] MEDS ORDERED: GLUCAGON FOR INJ 1 MG VIAL SQ PRN (19:46)
[2023-03-05] MEDS ORDERED: PHARMACY GLYCEMIC MGMT CONSULT PRN (19:46)
[2023-03-05] MEDS ORDERED: GLUCOSE 40% GEL 15 GM TUBE PO PRN (19:46)
[2023-03-05] MEDS ORDERED: CARBOHYDRATES FOR HYPOGLYCEMIA PO PRN (19:46)
[2023-03-05] MEDS ORDERED: ONDANSETRON INJ 2 MG/ML 2 ML VIAL IV PRN (19:46)
[2023-03-05] MEDS ORDERED: POTASSIUM CHLORIDE CRTAB 20 MEQ TABCR PO STA (19:46)
[2023-03-05] MEDS ORDERED: ALUMINUM/MAGNESIUM SUSP 30 ML UDC PO PRN (19:46)
[2023-03-05] MEDS ORDERED: MAGNESIUM HYDROXIDE SUSP 30 ML UDC PO PRN (19:46)
[2023-03-05] MEDS ORDERED: ACETAMINOPHEN 325 MG TAB PO PRN (19:46)
[2023-03-05] MEDS: MAGNESIUM SULFATE / D5W 1 GM/100 ML BAG IV SCH (20:07)
[2023-03-05] MEDS: SODIUM CHLORIDE 0.9% 1,000 ML IV SCH (20:07)
[2023-03-05 20:23] LABS: Hematocrit (blood only) 40.1 % (37.0-47.0); Mean Corpuscular Hemoglobin 28.1 pg (25.0-34.0); Mean Corpuscular Hgb Conc 32.4 g/dL (32.0-36.0); Mean Corpuscular Volume 86.8 fL (80.0-100.0); Mean Platelet Volume 11.4 fL (9.4-12.4); Platelet Count 267 K/uL (130-400); RDW Coefficient of Variation 15.9 % (11.5-14.5); RDW Standard Deviation 49.4 fL (36.4-46.3); Red Blood Count 4.62 M/uL (4.20-5.40); White Blood Count 20.34 K/ul (4.8-10.8)
[2023-03-05 20:26] LABS: BUN Creatinine Ratio 29.6 (10-20); Calcium 7.8 mg/dl (8.6-10.3); Creatinine Clr Calc Pharmacy 67.7 ml/min; Est GFR (African American) 84.7 ml/min; Est GFR (Non-African American) 73.1 ml/min; Potassium 3.2 mmol/L (3.5-5.1)
[2023-03-05 20:38] LABS: Basophils # (auto) 0.04 K/uL (0.00-0.20); Basophils % (auto) 0.2 %; Eosinophils # (auto) 0.03 K/uL (0.00-0.50); Eosinophils % (auto) 0.1 %; Immature Granulocytes # (auto) 0.15 K/uL (0.01-0.20); Immature Granulocytes % (auto) 0.7 %; Lymphocytes # (auto) 0.48 K/uL (1.20-3.40); Lymphocytes % (auto) 2.4 %; Monocytes # (auto) 1.16 K/uL (0.11-0.59); Monocytes % (auto) 5.7 %; Neutrophils # (auto) 18.48 K/uL (1.40-6.50); Neutrophils % (auto) 90.9 %
[2023-03-05] MEDS: LANTUS PER UNIT CHARGE SQ SCH (20:40)
[2023-03-05 20:52] LABS: Troponin I High Sensitivity 53.5 pg/ml (0-14)
[2023-03-05] MEDS ORDERED: INSULIN ASPART PER UNIT CHARGE SC SCH (21:00)
[2023-03-05] MEDS: PIPERACILLIN/TAZOBACTAM 4.5 GM in DEXTROSE 5% MINI-B 100 ML IV SCH (21:03)
[2023-03-05] MEDS: CLINDAMYCIN/D5W 600 MG/50 ML BAG IV SCH (21:35)
--- NOTE | 2023-03-05 22:18 | Operative Report ---
Post Operative Report Pre & Post Diagnosis Operation Date: 03/05/23 11:45 Pre-Op Diagnosis: Right foot cellulitis Post-Op Diagnosis: Right foot cellulitis I identified the patient and participated in the time-out.: Yes Procedure Operation Date: 03/05/23 11:45 Actual Procedures p Incision and Drainage Infected Hematoma Right Foot Plantar Surface(Right) - Lm Steele, DO s Amputation right 4th Toe(Right) - Peter Teague DPM, MS Surgeon Peter Teague DPM, MS Edge Setter Dr. Jasper Teague Estimated Blood Loss 1 Findings Consistent with Post-Op Diagnosis consistent with pre operative diagnosis Specimens fourth ray right foot - microbiology and pathology Description of Procedure History of present illness: Patient is a type II diabetic, 72 year old female who is seen for treatment of gas gangrene with significant necrosis of the right fourth ray and plantar foot. Plain film taken reveal gas in tissue tracking from fourth toe into plantar foot and medial arch. Dr. Steele of [facility] General Surgery has provided significant debridement and requests amputation of right toe. Preoperative diagnosis: 1.) Right foot gas gangrene 2.) Right fourth toe necrosis Postoperative diagnosis: same Name of operation: 1.) Right fourth ray resection 2.)Right foot wash out with application of Vancomycin beads Surgeon: Dr. Teague Edge Setter: None Anesthesia: General anesthesia care Hemostasis: None Estimated blood loss: minimal Procedure in detail: Under mild sedation the patient was brought in the operating room placed on the operating table in supine position. Following sedation the foot was prepped scrubbed and draped in usual aseptic manner. Dr. Steele carefully dissected away considerable non-viable tissue approximately 13cm-8cm down to and including the plantar fascia. Please see her operative dictation for further details. Attention was then directed to the right necrotic fourth toe.An incision was created utilizing a sharp, sterile, #15 blade surrounding the necrotic fourth toe at the metatarsal phalangeal joint.The incision was deepened through subcutaneous tissue using sharp blunt dissection. All adjacent necrotic tissue was excised. Significant tissue was removed exposing the adjacent third metatarsal phalangeal joint as well. At this time the right fourth toe was removed at the metatarsal inter phalangeal joint and placed on the back table. The fourth metatarsal was then partially excised utilizing and oscillating bone saw at the distal diaphysis. The distal portion of the right fourth metatarsal and fourth toe was sent to microbiology and pathology.Copious amounts of sterile normal saline were utilized to flush the incision site. Approximately 3 L of lactate ringer was utilized to flush the excised plantar tissue site.Poor vascularity was apparent by lack of bleeding to tissue and surrounding wound base. 1 gram of Vancomycin infused stimulan beads were fabricated at the back table. They were then placed directly over the wound. The wound was then dressed with adaptic, 4 x4, kerlix, yesi. The Patient tolerated the procedure and anesthesia well. She was transferred to recovery room vital signs stable. After a period of postoperative monitoring the patient will be admitted to the floor I attest to the content of the Intraoperative Record and any orders documented therein. Any exceptions are noted below.
[2023-03-05] MEDS ORDERED: INFLUENZA VACCINE HIGH-DOSE (HD-IIV4) PF 65+ 0.7mL SYR IM ONE (22:40)
[2023-03-05] MEDS ORDERED: GADOBUTROL 65ML VIAL IV ONE (23:52)
[2023-03-06] MEDS: MAGNESIUM SULFATE / D5W 1 GM/100 ML BAG IV SCH ×2 (00:39→02:39)
[2023-03-06] MEDS: HYDROmorphone INJ 0.5 MG/0.5 ML SYR IV PRN ×3 (02:58→12:55)
--- NOTE | 2023-03-06 03:27 | Magnetic Resonance Report ---
Exam(s): MRI RIGHT FOOT W/WO Contrast IV Amt: 8cc gadavist EXAM: MR Right Lower Extremity Without and With Intravenous Contrast, Foot CLINICAL HISTORY: Reason for exam: Right foot infection. TECHNIQUE: Multiplanar magnetic resonance images of the right foot without and with intravenous contrast. CONTRAST: Patient received 8cc gadavist of IV contrast COMPARISON: No relevant prior studies available. FINDINGS: Amputation of the fourth ray at the level of the distal metatarsal. Large wound in the fourth webspace and along the plantar surface of the foot. This wound measures approximately 4.6 cm medial-lateral by 10 cm proximal-distal by 5.2 cm superior-inferior. No fluid collection or abscess. No MR evidence of osteomyelitis of the metatarsals. Wound care evaluation recommended. Edema and atrophy of the foot musculature likely from diabetes. Mild degenerative arthropathy. Moderate dorsal subcutaneous edema. IMPRESSION: Amputation of the fourth ray at the level of the distal metatarsal. Large wound in the fourth webspace and along the plantar surface of the foot. Recommend wound care evaluation. No fluid collection or abscess. No MR evidence of osteomyelitis of the metatarsals. Electronically signed by: Massimo Lujan MD 03/06/23 03:25 AM
[2023-03-06] MEDS: PIPERACILLIN/TAZOBACTAM 4.5 GM in DEXTROSE 5% MINI-B 100 ML IV SCH ×3 (04:52→14:09)
[2023-03-06] MEDS: CLINDAMYCIN/D5W 600 MG/50 ML BAG IV SCH ×2 (05:00→14:02)
[2023-03-06] MEDS ORDERED: INSULIN ASPART PER UNIT CHARGE SC SCH (06:00)
[2023-03-06 06:16] LABS: Basophils # (auto) 0.05 K/uL (0.00-0.20); Basophils % (auto) 0.3 %; Eosinophils # (auto) 0.02 K/uL (0.00-0.50); Eosinophils % (auto) 0.1 %; Hematocrit (blood only) 40.5 % (37.0-47.0); Hemoglobin 12.7 g/dl (12.0-16.0); Immature Granulocytes # (auto) 0.13 K/uL (0.01-0.20); Immature Granulocytes % (auto) 0.7 %; Lymphocytes # (auto) 0.71 K/uL (1.20-3.40); Mean Corpuscular Hgb Conc 31.4 g/dL (32.0-36.0); Mean Corpuscular Volume 89.2 fL (80.0-100.0); Mean Platelet Volume 11.1 fL (9.4-12.4); Monocytes # (auto) 0.96 K/uL (0.11-0.59); Monocytes % (auto) 5.4 %; Neutrophils # (auto) 16.03 K/uL (1.40-6.50); Neutrophils % (auto) 89.5 %; Platelet Count 270 K/uL (130-400); RDW Coefficient of Variation 15.8 % (11.5-14.5); RDW Standard Deviation 51.7 fL (36.4-46.3); Red Blood Count 4.54 M/uL (4.20-5.40)
[2023-03-06 06:37] LABS: Albumin Globulin Ratio 0.7 (0.9-2); Albumin Level 2.3 gm/dl (3.4-5.0); BUN Creatinine Ratio 27.9 (10-20); Calcium 7.7 mg/dl (8.6-10.3); Creatinine Clr Calc Pharmacy 65.2 ml/min; Est GFR (African American) 78.8 ml/min; Globulin 3.3 gm/dl (2.5-4.0); Magnesium 1.7 mg/dl (1.7-2.4); Potassium 3.4 mmol/L (3.5-5.1); Total Protein 5.6 gm/dl (6.0-8.3)
[2023-03-06] MEDS ORDERED: POTASSIUM CHLORIDE CRTAB 20 MEQ TABCR PO STA (06:45)
[2023-03-06] MEDS ORDERED: POTASSIUM CHLORIDE CRTAB 20 MEQ TABCR PO SCH (06:45)
--- NOTE | 2023-03-06 07:37 | Ultrasound Report ---
BILATERAL LOWER EXTREMITY ARTERIAL DOPPLER ULTRASOUND CLINICAL HISTORY: Necrotic right and left foot. COMPARISON STUDY: No previous studies for comparison. TECHNIQUE: Ankle to brachial indices could not be obtained due to noncompressibility of the vessels. Grayscale and color Duplex Doppler sonography of the arterial systems of the lower extremities was pe rformed FINDINGS: Extensive atherosclerotic plaque was noted within the lower extremities. No elevated veloci ties were identified. There is triphasic flow within the right common femoral and profunda arteries. There is biphasic flow within the proximal right superficial femoral artery. The mid to distal right superficial femoral artery and the popliteal artery were occluded. No flow is identified within the r ight SFA/popliteal artery stent. No flow was identified within the right posterior tibial artery locke camacho there was dampened monophasic flow within the right anterior tibial, dorsalis pedis and peroneal arteries through collaterals. High diastolic flow was noted within the right anterior tibial and dors gregory pedis vessels. There is triphasic flow within the left common femoral artery and profunda artery. Monophasic flow is noted within the left superficial femoral and popliteal arteries. There was significantly dampened m onophasic flow within the left calf vessels. However, no flow is identified within the left peroneal artery. There is no flow within the left posterior tibial artery. IMPRESSION: 1. Extensive atherosclerotic plaque within the bilateral lower extremities, as described above. 2. Occluded right SFA/popliteal artery stent. Occlusion of the right superficial femoral, popliteal a nd posterior tibial arteries. Significantly dampened, monophasic flow within the remainder of the rig ht calf vessels through collaterals. 3. Monophasic flow within the left superficial femoral and popliteal arteries. Significantly diminish ed flow within the left calf vessels, as detailed above. ACT 112: Negative or not required by law. Electronically signed by: Keanu Gil M.D. 03/06/2023 7:35 AM
[2023-03-06 07:52] LABS: Estimated Average Glucose 157 mg/dl; Hemoglobin A1C 7.1 % (4.5-5.6)
[2023-03-06] MEDS: LANTUS PER UNIT CHARGE SQ SCH ×2 (08:36→20:07)
--- NOTE | 2023-03-06 08:40 | Surgery Progress Note ---
Date of Service March 06, 2023 Assessment & Plan (1) Cellulitis of right foot: Plan: POD 1 Incision and Drainage Infected Hematoma Right Foot Plantar Surface Surgeon: Lm Steele, DO Amputation right 4th Toe Surgeon: Peter Teague, DPM, MS Right foot wrapped in Kerlix , yellow drainage noted on planter surface. Redness noted around ankle, Dressing left intact. Podiatry specialist Dr. Teague will evaluate post operative foot today, and resume care of patient moving forward. General surgery will sign off at this time, please call with questions or concerns. Thank you for allowing us to participate in the care of this patient. Patient seen and examined with Dr. Steele Admission and Anticipated Discharge Date Admission Date: March 05, 2023 Supervising Physician Co-Signing Physician Notes Patient was seen and examined this am. She is being transferred for potential revascularization as she has arterial occlusive disease of prior RLE stents. Podiatry will continue to follow from here for any further necessary debridement while the patient is here. General surgery will sign off at this time. Please re-consult general surgery if needed. Review of Systems Integumentary: + wounds (Right foot , lower right leg ) Physical Exam Physical Exam: patient resting in bed Constitutional: cooperative and comfortable; no acute distress Respiratory: normal respiratory effort and able to speak in complete sentences; no respiratory distress Cardiovascular: Rate/Rhythm: + tachycardic (103) Skin: Right foot wrapped in Kerlix , yellow drainage noted on planter surface. Dressing left intact. Podiatry specialist Dr. Teague will evaluate post operative foot today. Results & Data Vital Signs (Past 12 Hours) Vital Signs Temp Pulse Resp BP Pulse Ox O2 Del Method O2 Flow Rate 03/06/23 07:39 97.5 F L 103 H 18 108/71 90 Room Air 03/06/23 07:27 Room Air 03/06/23 02:56 97.7 F 92 H 17 138/81 99 Room Air 03/06/23 00:37 97.9 F 76 16 118/80 99 Nasal Cannula 1 03/05/23 22:26 Nasal Cannula 2 PG Care Time/CCT Total # of Minutes Spent Total Time Spent with Patient: Total time spent is greater than 50% in coordination of care (as documented) at patient's floor/unit and/or counseling patient: Coding Level of Care Code 55537 Post Operative Follow-Up Diagnoses Cellulitis of right foot L03.115 Comment
--- NOTE | 2023-03-06 08:52 | Consultation ---
Date of Consultation March 06, 2023 History of Present Illness Attending Physician: Cassie Gipson MD History of Present Illness This patient had stents placed in [place] in 07/05. The stents of the right lower extremity appear occluded on duplex with severe decrease in outflow. She will need repeat intervention or bypass of the right lower extremity. I am not available til 03/17/23 so it would be in her best interest to send her back to [place] for limb salvage. Allergies Allergy/AdvReac Type Severity Reaction Status Date / Time No Known Allergies Allergy Verified 03/28/21 02:27 Home Medications Medication Instructions Recorded Confirmed Type amlodipine 5 mg tablet 5 mg PO DAILY 03/05/23 03/05/23 History aspirin 81 mg tablet,delayed 81 mg PO DAILY 03/05/23 03/05/23 History release atorvastatin 80 mg tablet 80 mg PO HS 03/05/23 03/05/23 History clopidogrel 75 mg tablet 75 mg PO DAILY 03/05/23 03/05/23 History glipizide 5 mg tablet 5 mg PO BID 03/05/23 03/05/23 History lisinopril 20 20 - 25 tab PO DAILY 03/05/23 03/05/23 History mg-hydrochlorothiazide 25 mg tablet metformin 1,000 mg tablet 1,000 mg PO BIDM 03/05/23 03/05/23 History Patient History Medical History T2DM (type 2 diabetes mellitus) HLD (hyperlipidemia) PAD (peripheral artery disease) Mr. Chatterjee returns to clinic s/p percutaneous transluminal angioplasty of the right anterior tibial artery (2.5 x 40 mm Franklin balloon), percutaneous transluminal angioplasty of the right tibioperoneal trunk (2.5 x 40 mm Franklin balloon) and percutaneous transluminal angioplasty and stenting of the right superficial femoral artery and popliteal artery (6 x 100 mm and 6 x 40 mm Porsha stents, post-dilated to 5 mm) by Dr. Mckeon 06/21/2021. 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
[2023-03-06] MEDS ORDERED: lisinopril 20 MG TAB PO SCH (09:00)
[2023-03-06] MEDS ORDERED: amLODIPine BESYLATE 5 MG TAB PO SCH (09:00)
[2023-03-06] MEDS: SODIUM CHLORIDE 0.9% 1,000 ML IV SCH (09:02)
[2023-03-06] MEDS ORDERED: POTASSIUM CHLORIDE / WTR 10 MEQ/100 ML PLCT IV ONE (10:09)
--- NOTE | 2023-03-06 10:15 | Hospitalist Progress Note ---
Date of Service March 06, 2023 Assessment & Plan (1) Gangrenous toe: (2) Severe sepsis: (3) Acute UTI: (4) Lactic acidosis: (5) Cellulitis of right foot: (6) T2DM (type 2 diabetes mellitus): (7) PAD (peripheral artery disease): Plan: Status post multiple stents placement in June 2021 in right leg as mentioned in H&P Arterial Doppler is showing obstruction of the stent in the vascular surgery advised the patient should be transferred to [place] for further evaluation and to save the leg Case discussed with Dr. Cornell, vascular surgery department in [place] who accepted her for transfer Discussed with the patient (8) HTN (hypertension): (9) HLD (hyperlipidemia): Plan This is a 72-year-old female who has a significant past medical history of T2DM, HTN, HLD, PAD and depression with anxiety who presents to ED secondary to R 4th black toe and redness to foot x 1 week. Severe sepsis Gangrenous toe Cellulitis of right foot Lactic acidosis Admitted to telemetry unit Broad-spectrum antibiotics with IV daptomycin, clindamycin and Zosyn Getting IV fluids and pain medications as needed Await blood, urine and wound culture Appreciate surgery input and recommendation Appreciate orthopedic input and recommendation Consult wound care Status post incision and drainage is of infected hematoma right foot plantar surface on 03/05/2023 Status post right fourth toe ray amputation on 03/05/2023 She has minimal pain involving the right foot-moves all the toes and ankles Reasonable flow in right anterior tibial with Doppler but no flow right posterior tibial with Doppler Reasonable flow in left anterior tibial and left posterior tibial Doppler Discussed with vascular surgeon and the creative lead who advised transfer to [place] for limb salvation Discussed with Dr. Cornell,the vascular surgeon addendum and the patient will be transferred to [place] whenever there is a bed available Discussed with the patient and she is agreeable Consult infectious disease Acute UTI Await urine culture Empiric antibiotics as above Elevated troponin likely demand ischemia in setting of sepsis echo from outpatient 2019 revealed preserved EF Doubt any ACS Hypomagnesemia replete Corrected T2DM lantus/novolog per protocol recent a1c 6.9 hold metformin/glipizde HTN continue amlodipine, lisinopril given elevated BP she did not take her meds yet today will re eval post op HLD pt prescribed high dose statin 80mg, unsure if taking hold while on dapto PAD follows vascular surg at [place] prior re vascularization to RLE DVT ppx: will hold off for now, post operatively will add chemical prophylaxis with heparin once appropriate FULL CODE PCP: Dr. Light Dispo: PCU, cbc, cmp, mag in a.m. Admission and Anticipated Discharge Date Admission Date: March 05, 2023 Subjective 03/06/2023 The patient was seen and examined in telemetry unit She has been feeling little better and denies any significant pain in the feet She is a status post right fourth toe ray amputation and also I&D of the right plantar hematoma on 03/05/2023 Denies any chest pain or palpitation, no shortness of breath, no abdominal pain nausea or vomiting No fever and or chills Review of Systems Review of Systems: All systems reviewed and are unremarkable except as noted below Physical Exam Physical Exam: Lying in bed comfortably Constitutional: + ill appearing and average body habitus Eyes: PERRL, conjunctivae normal, anicteric sclerae ENMT: external ear and nose normal, oropharynx normal Neck: trachea midline, no thyromegaly Respiratory: no respiratory distress Auscultation: lungs clear to auscultation bilaterally Cardiovascular: Rate/Rhythm: regular rate and regular rhythm; not tachycardic Heart Sounds: normal S1 and normal S2; no murmur Extremities: + edema Gastrointestinal (Abdomen): Inspection/Auscultation: normal bowel sounds; abdomen not distended Percussion/Palpation: abdomen soft; abdomen nontender Musculoskeletal: No acute arthritis involving any joint, right foot is bandaged. Left foot has medial ulceration on the great toe with redness and tenderness Skin: Bilateral swelling of the feet with redness and tenderness and warmth Neurologic: Alert, awake and oriented x 3. Moving all limbs. No numbness or tingling involving the feet Lymphatic: no cervical or axillary lymphadenopathy Results & Data Results & Data Vital Signs (Past 12 Hours) Vital Signs Temp Pulse Resp BP Pulse Ox O2 Del Method O2 Flow Rate 03/06/23 07:39 36.4 C L 103 H 18 108/71 90 Room Air 03/06/23 07:27 Room Air 03/06/23 02:56 36.5 C 92 H 17 138/81 99 Room Air 03/06/23 00:37 36.6 C 76 16 118/80 99 Nasal Cannula 1 03/05/23 22:26 Nasal Cannula 2 Laboratory Results Short CBC 03/05/23 03/05/23 03/06/23 Range/Units 12: 19:49 05:35 WBC 17.04 H 20.34 H 17.90 H (4.8-10.8) K/ul Hgb 16.0 13.0 D 12.7 (12.0-16.0) g/dl Hct 48.5 H 40.1 40.5 (37.0-47.0) % Plt Count 350 267 270 (130-400) K/uL BMP 03/05/23 03/05/23 03/05/23 12: 14:19 19:49 Sodium TNP 141 140 Potassium TNP 3.2 L 3.2 L Chloride 102 107 Carbon Dioxide 27 25 BUN 24 H 24 H Creatinine 0.89 0.81 Glucose 118 H 107 H Calcium 8.9 7.8 L 03/06/23 05:35 Sodium 138 Potassium 3.4 L Chloride 106 Carbon Dioxide 25 BUN 24 H Creatinine 0.86 Glucose 115 H Calcium 7.7 L Cardiac Enzymes 03/05/23 Range/Units 14:19 Total Creatine Kinase 23 L (26-192) U/L Liver Function 03/05/23 03/05/23 03/06/23 Range/Units 12:21 14:19 05:35 Total Bilirubin 1.2 H 1.0 (0.2-1.0) mg/dl Direct Bilirubin TNP 0.6 H AST TNP 13 11 L ALT 8 5 L (7-52) U/L Alkaline Phosphatase TNP 126 H 107 H Albumin TNP 2.6 L 2.3 L Urine 03/05/23 Range/Units 13:03 Urine Color Dark Yellow Urine Appearance Turbid A (Clear) Urine pH 6.0 (4.5-7.5) Ur Specific [place] 1.023 (1.000-1.030) Urine Protein 2+ H (Negative) Urine Glucose (UA) Negative (Negative) Diagnostic Findings Laboratory Results WBC 17.90 K/ul (4.8-10.8) H 03/06/23 05:35 RBC 4.54 M/uL (4.20-5.40) 03/06/23 05:35 Hgb 12.7 g/dl (12.0-16.0) 03/06/23 05:35 Hct 40.5 % (37.0-47.0) 03/06/23 05:35 MCV 89.2 fL (80.0-100.0) 03/06/23 05:35 MCH 28.0 pg (25.0-34.0) 03/06/23 05:35 MCHC 31.4 g/dL (32.0-36.0) L 03/06/23 05:35 RDW Std Deviation 51.7 fL (36.4-46.3) H 03/06/23 05:35 RDW Coeff of Marycruz 15.8 % (11.5-14.5) H 03/06/23 05:35 Plt Count 270 K/uL (130-400) 03/06/23 05:35 MPV 11.1 fL (9.4-12.4) 03/06/23 05:35 Immature Gran % (Auto) 0.7 % 03/06/23 05:35 Neut % (Auto) 89.5 % 03/06/23 05:35 Lymph % (Auto) 4.0 % 03/06/23 05:35 Seward % (Auto) 5.4 % 03/06/23 05:35 Eos % (Auto) 0.1 % 03/06/23 05:35 Baso % (Auto) 0.3 % 03/06/23 05:35 Neut # (Auto) 16.03 K/uL (1.40-6.50) H 03/06/23 05:35 Lymph # (Auto) 0.71 K/uL (1.20-3.40) L 03/06/23 05:35 Seward # (Auto) 0.96 K/uL (0.11-0.59) H 03/06/23 05:35 Eos # (Auto) 0.02 K/uL (0.00-0.50) 03/06/23 05:35 Baso # (Auto) 0.05 K/uL (0.00-0.20) 03/06/23 05:35 Immature Gran # (Auto) 0.13 K/uL (0.01-0.20) 03/06/23 05:35 Polychromasia 1+ 03/05/23 12:21 Sodium 138 mmol/L (136-145) 03/06/23 05:35 Potassium 3.4 mmol/L (3.5-5.1) L 03/06/23 05:35 Chloride 106 mmol/L (98-107) 03/06/23 05:35 Carbon Dioxide 25 mmol/L (21-32) 03/06/23 05:35 Anion Gap 7 (3-11) 03/06/23 05:35 BUN 24 mg/dl (6-23) H 03/06/23 05:35 Creatinine 0.86 mg/dl (0.6-1.2) 03/06/23 05:35 Est Cr Clr Drug Dosing 65.2 ml/min 03/06/23 05:35 Est GFR ( Amer) 78.8 ml/min 03/06/23 05:35 Est GFR (Non-Af Amer) 68.0 ml/min 03/06/23 05:35 BUN/Creatinine Ratio 27.9 (10-20) H 03/06/23 05:35 Glucose 115 mg/dl (70-99(Fasting)) H 03/06/23 05:35 POC Glucose 114 mg/dl (70-99) H 03/06/23 05:55 Estimat Average Glucose 157 mg/dl 03/06/23 05:35 Hemoglobin A1c 7.1 % (4.5-5.6) H 03/06/23 05:35 Lactate 1.5 mmol/L (0.4-2.0) 03/05/23 19:49 Calcium 7.7 mg/dl (8.6-10.3) L 03/06/23 05:35 Magnesium 1.7 mg/dl (1.7-2.4) 03/06/23 05:35 Total Bilirubin 1.0 mg/dl (0.2-1.0) 03/06/23 05:35 Direct Bilirubin 0.6 mg/dl (0-0.2) H 03/05/23 14:19 AST 11 U/L (13-39) L 03/06/23 05:35 ALT 5 U/L (7-52) L 03/06/23 05:35 Alkaline Phosphatase 107 U/L (34-104) H 03/06/23 05:35 Total Creatine Kinase 23 U/L (26-192) L 03/05/23 14:19 Troponin I High Sens 47.0 pg/ml (0-14) H 03/06/23 05:35 Total Protein 5.6 gm/dl (6.0-8.3) L D 03/06/23 05:35 Albumin 2.3 gm/dl (3.4-5.0) L 03/06/23 05:35 Globulin 3.3 gm/dl (2.5-4.0) 03/06/23 05:35 Albumin/Globulin Ratio 0.7 (0.9-2) L 03/06/23 05:35 Procalcitonin 1.37 ng/ml (0-0.5) H 03/05/23 14:19 Urine Color Dark Yellow 03/05/23 13:03 Urine Appearance Turbid (Clear) A 03/05/23 13:03 Urine pH 6.0 (4.5-7.5) 03/05/23 13:03 Ur Specific [place] 1.023 (1.000-1.030) 03/05/23 13:03 Urine Protein 2+ (Negative) H 03/05/23 13:03 Urine Glucose (UA) Negative (Negative) 03/05/23 13:03 Urine Ketones Trace (Negative) H 03/05/23 13:03 Urine Blood 1+ (Negative) H 03/05/23 13:03 Urine Nitrite Positive (Negative) A 03/05/23 13:03 Urine Bilirubin 1+ (Negative) H 03/05/23 13:03 Urine Urobilinogen Positive (Negative) H 03/05/23 13:03 Ur Leukocyte Esterase 2+ (Negative) H 03/05/23 13:03 Urine WBC (Auto) >30 /hpf (0-5) H 03/05/23 13:03 Urine RBC (Auto) 0-4 /hpf (0-4) 03/05/23 13:03 U Hyaline Cast (Auto) 1-5 /lpf (0-5) 03/05/23 13:03 U Epithel Cells (Auto) 20-30 /lpf (0-5) H 03/05/23 13:03 Urine Bacteria (Auto) 4+ (Negative) H 03/05/23 13:03 Urine Yeast Not Reportable 03/05/23 13:03 Adenovirus (PCR) Not Detected (NotDetected) 03/05/23 12:19 B. pertussis DNA (PCR) Not Detected (NotDetected) 03/05/23 12:19 B.parapertussis DNA PCR Not Detected (NotDetected) 03/05/23 12:19 C. pneumoniae DNA (PCR) Not Detected (NotDetected) 03/05/23 12:19 Coronavirus OC43 (PCR) Not Detected (NotDetected) 03/05/23 12:19 Coronavirus HKU1 (PCR) Not Detected (NotDetected) 03/05/23 12:19 Coronavirus 229E (PCR) Not Detected (NotDetected) 03/05/23 12:19 SARS-CoV-2 (PCR) Not Detected (NotDetected) 03/05/23 12:19 Coronavirus NL63 (PCR) Not Detected (NotDetected) 03/05/23 12:19 Human Metapneumovir PCR Not Detected (NotDetected) 03/05/23 12:19 Influenza Type A (PCR) Not Detected (NotDetected) 03/05/23 12:19 Influenza Type B (PCR) Not Detected (NotDetected) 03/05/23 12:19 M. pneumoniae (PCR) Not Detected (NotDetected) 03/05/23 12:19 Parainfluenza 1 (PCR) Not Detected (NotDetected) 03/05/23 12:19 Parainfluenza 2 (PCR) Not Detected (NotDetected) 03/05/23 12:19 Parainfluenza 3 (PCR) Not Detected (NotDetected) 03/05/23 12:19 Parainfluenza 4 (PCR) Not Detected (NotDetected) 03/05/23 12:19 RSV (PCR) Not Detected (NotDetected) 03/05/23 12:19 Entero/Rhino (PCR) Not Detected (NotDetected) 03/05/23 12:19 Impressions Chest X-Ray 03/05/23 11:35 XR chest 1V not portable CLINICAL HISTORY: Sepsis. COMPARISON STUDY: Chest radiograph and chest CT April 15, 2017. FINDINGS: There is no pneumothorax. Small right pleural effusion is present. Skin folds project over the chest. No consolidation is identified. There is moderate cardiomegaly. Mild interstitial thickening is present. IMPRESSION: 1. Cardiomegaly with mild interstitial pulmonary edema. 2. Small right pleural effusion. ACT 112: Negative or not required by law. Electronically signed by: Keanu Gil M.D. 03/05/2023 1:29 PM Foot X-Ray 03/05/23 11:36 XR foot LT 2V CLINICAL HISTORY: wounds, necrosis. Assess for ostial myelitis. COMPARISON STUDY: None. FINDINGS: Lucency at the head of the proximal phalanx of the left fifth toe. This may represent a nondisplaced fracture. This is technically age indeterminate but likely old. Otherwise, no acute fracture or dislocation within the left foot. Mild degenerative changes within the left foot. The bones are osteopenic. Vascular calcifications are noted. There are few scattered skin ulcerations at the forefoot and heel. No underlying bony destruction to suggest an osteomyelitis. Plantar heel spur. Soft tissue and bony bunion is noted. IMPRESSION: 1. A few scattered skin ulcerations within the forefoot and heel. No underlying bony destruction to suggest an osteomyelitis. 2. Lucency at the head of the proximal phalanx of the left fifth toe. This may represent a nondisplaced fracture. This is technically age indeterminate but likely old. Recommend correlation for pain at this location to assess for acute injury. ACT 112: Negative or not required by law. Electronically signed by: Brian Jackson M.D. 03/05/2023 2:37 PM Duplex Scan Lower Extremity Artery 03/05/23 18:03 BILATERAL LOWER EXTREMITY ARTERIAL DOPPLER ULTRASOUND CLINICAL HISTORY: Necrotic right and left foot. COMPARISON STUDY: No previous studies for comparison. TECHNIQUE: Ankle to brachial indices could not be obtained due to noncompressi bility of the vessels. Grayscale and color Duplex Doppler sonography of the arterial systems of the lower extremities was performed FINDINGS: Extensive atherosclerotic plaque was noted within the lower extremities. No elevated velocities were identified. There is triphasic flow within the right common femoral and profunda arteries. There is biphasic flow within the proximal right superficial femoral artery. The mid to distal right superficial femoral artery and the popliteal artery were occluded. No flow is identified within the right SFA/popliteal artery stent. No flow was identified within the right posterior tibial artery however there was dampened monophasic flow within the right anterior tibial, dorsalis pedis and peroneal arteries through collaterals. High diastolic flow was noted within the right anterior tibial and dorsalis pedis vessels. There is triphasic flow within the left common femoral artery and profunda artery. Monophasic flow is noted within the left superficial femoral and popliteal arteries. There was significantly dampened monophasic flow within the left calf vessels. However, no flow is identified within the left peroneal artery. There is no flow within the left posterior tibial artery. IMPRESSION: 1. Extensive atherosclerotic plaque within the bilateral lower extremities, as described above. 2. Occluded right SFA/popliteal artery stent. Occlusion of the right superficial femoral, popliteal and posterior tibial arteries. Significantly dampened, monophasic flow within the remainder of the right calf vessels through collaterals. 3. Monophasic flow within the left superficial femoral and popliteal arteries. Significantly diminished flow within the left calf vessels, as detailed above. ACT 112: Negative or not required by law. Electronically signed by: Keanu Gil M.D. 03/06/2023 7:35 AM Foot MRI 03/05/23 18:04 Exam(s): MRI RIGHT FOOT W/WO Contrast IV Amt: 8cc gadavist EXAM: MR Right Lower Extremity Without and With Intravenous Contrast, Foot CLINICAL HISTORY: Reason for exam: Right foot infection. TECHNIQUE: Multiplanar magnetic resonance images of the right foot without and with intravenous contrast. CONTRAST: Patient received 8cc gadavist of IV contrast COMPARISON: No relevant prior studies available. FINDINGS: Amputation of the fourth ray at the level of the distal metatarsal. Large wound in the fourth webspace and along the plantar surface of the foot. This wound measures approximately 4.6 cm medial-lateral by 10 cm proximal-distal by 5.2 cm superior-inferior. No fluid collection or abscess. No MR evidence of osteomyelitis of the metatarsals. Wound care evaluation recommended. Edema and atrophy of the foot musculature likely from diabetes. Mild degenerative arthropathy. Moderate dorsal subcutaneous edema. IMPRESSION: Amputation of the fourth ray at the level of the distal metatarsal. Large wound in the fourth webspace and along the plantar surface of the foot. Recommend wound care evaluation. No fluid collection or abscess. No MR evidence of osteomyelitis of the metatarsals. Electronically signed by: Massimo Lujan MD 03/06/23 03:25 AM Medications Administered Current Inpatient Medications Acetaminophen (Acetaminophen 325 Mg Tab) 650 mg PO Q4H PRN PRN Reason: Pain or Fever Stop: 04/04/23 19:45 Last Admin: 03/06/23 02:26 Dose: 650 mg Al Hydrox/Mg Hydrox/Simethicone (Aluminum/Magnesium Susp 30 Ml Udc) 15 ml PO Q4H PRN PRN Reason: Dyspepsia Stop: 04/04/23 19:45 Amlodipine Besylate (Amlodipine Besylate 5 Mg Tab) 5 mg PO DAILY VON Stop: 04/05/23 08:59 Last Admin: 03/06/23 08:58 Dose: 5 mg Dextrose (Dextrose 50% 50 Ml Syringe) 25 - 50 ml IV UD PRN; Protocol PRN Reason: Hypoglycemia Protocol Stop: 04/04/23 19:45 Glucagon (Glucagon For Inj 1 Mg Vial) 1 mg SQ UD PRN; Protocol PRN Reason: Hypoglycemia Protocol Stop: 04/04/23 19:45 Glucose (Glucose 10 Tab/Tube) 4 - 8 tab PO UD PRN; Protocol PRN Reason: Hypoglycemia Treatment Stop: 04/04/23 19:45 Glucose (Glucose 40% Gel 15 Gm Tube) 15 - 30 gm PO UD PRN; Protocol PRN Reason: Hypoglycemia Protocol Stop: 04/04/23 19:45 Hydromorphone HCl (Hydromorphone Inj 0.5 Mg/0.5 Ml Syr) 0.5 mg IV Q4H PRN PRN Reason: Mod-Sev Pain (Scale 4-10) Stop: 03/20/23 02:30 Last Admin: 03/06/23 09:00 Dose: 0.5 mg Daptomycin 375 mg/ Syringe 7.5 mls @ 3.75 mls/min IV Q24H VON; Protocol Stop: 03/12/23 13:59 Last Admin: 03/05/23 14:43 Dose: 3.75 mls/min Clindamycin Phosphate (Cleocin/D5w) 600 mg in 50 mls @ 100 mls/hr IV Q8H VON Stop: 04/16/23 21:59 Last Infusion: 03/06/23 05:30 Dose: Infused Piperacillin Sod/Tazobactam (Sod 4.5 gm/ Dextrose) 100 mls @ 25 mls/hr IV Q8H VON; Protocol Stop: 04/16/23 20:29 Last Infusion: 03/06/23 09:04 Dose: Infused Sodium Chloride (Nss) 1,000 mls @ 80 mls/hr IV .[id number] VON Stop: 04/04/23 19:45 Last Admin: 03/06/23 09:02 Dose: 80 mls/hr Insulin Aspart (Insulin Aspart Per Unit Charge) 0 units SC ACHS [facility] Stop: 04/05/23 11:29 Insulin Glargine (Lantus Per Unit Charge) 0 - 10 units SQ BID [facility] Stop: 04/04/23 20:59 Last Admin: 03/06/23 08:36 Dose: Not Given Lisinopril (Lisinopril 20 Mg Tab) 20 mg PO QAM [facility] Stop: 04/05/23 08:59 Last Admin: 03/06/23 08:58 Dose: 20 mg Magnesium Hydroxide (Magnesium Hydroxide Susp 30 Ml Udc) 30 ml PO Q12H PRN PRN Reason: Constipation Stop: 04/04/23 19:45 Miscellaneous (Carbohydrates For Hypoglycemia ) 15 - 30 gm PO UD PRN PRN Reason: Hypoglycemia Protocol Stop: 04/04/23 19:45 Miscellaneous Information (Pharmacy Glycemic Mgmt Consult) 1 each N/A UD PRN PRN Reason: Consult Stop: 04/04/23 19:45 Ondansetron HCl (Ondansetron Inj 2 Mg/Ml 2 Ml Vial) 4 mg IV Q6H PRN PRN Reason: Nausea Stop: 04/04/23 19:45 Polyethylene Glycol (Polyethylene (Miralax) 17 Gm Pack) 17 gm PO DAILY PRN PRN Reason: Constipation Stop: 04/04/23 19:45 Potassium Chloride (Potassium Chloride Crtab 20 Meq Tabcr) 20 meq PO TODAY@0645 [facility] Stop: 03/06/23 12:00 Last Admin: 03/06/23 09:37 Dose: 20 meq
--- NOTE | 2023-03-06 12:29 | Discharge Summary ---
Date of Service March 06, 2023 Admission HPI Per Admitting Provider This is a 72-year-old female who has a significant past medical history of T2DM, HTN, HLD, PAD and depression with anxiety who presents to ED secondary to R 4th black toe and redness to foot x 1 week. In regards to patient's vascular disease she follows with Dr. Mckeon of vascular surgery at [facility]. She is "s/p percutaneous transluminal angioplasty of the right anterior tibial artery(2.5 x 40 mm [place] balloon), percutaneous transluminal angioplasty of the right tibioperoneal trunk(2.5 x 40 mm [place] balloon) and percutaneous transluminal angioplasty and stenting of the right superficial femoral artery and popliteal artery(6 x 100 mm and 6 x 40 mm Porsha stents, post-dilated to 5 mm) by Dr. Mckeon 06/21/2021." She comes in with her Right 4th toe being back. This has been present for 1 week. She also states a couple days ago she kicked a table and since then has noticed drainage coming from her foot. She feels a slight decrease in sensation to her R foot. She has multiple wounds on her legs and open wound to L bunion. She tends to pick her scabs and wounds. She denies f/c/s, dizziness, lightheaded, chest pain, sob, n/v/d, abd pain. Her boyfriend is at bedside. She denies ever having similar sx in past. In ED patient met severe sepsis criteria secondary to leukocytosis, tachycardia and lactic acidosis. She was febrile with temp of 38.3. Her initial lactic acid was 3.4.Her WBC was elevated at 17k, H&H 16 and 48.5 platelet 350, BUN 24, creatinine 0.89, glucose 118, troponin 20 and urinalysis concerning for infection. Respiratory bio fire was negative. She underwent foot x-ray which revealed cellulitis with subcutaneous emphysema concerning for gas-forming infection. She was empirically started on IV Zosyn, clindamycin and cefepime. He also was administered 500 mL of IV fluid. Admission Exam Per Admitting Provider Physical exam GENERAL APPEARANCE: AxOx4, disheveled in appearance HEENT: NC, AT. MMM. EOMI, clear conjunctiva, oropharynx clear. lesion of excoriation on left side of nasal bridge NECK: Supple without lymphadenopathy. No stiffness or restricted ROM. HEART: tachycardic LUNGS: CTAB, moving air well. No crackles or wheezes are heard. ABDOMEN: Soft, nontender, nondistended with good bowel sounds heard. BACK: No CVAT, no obvious deformity. Multiple scabbed over excoriations without signs over superimposed infection EXTREMITIES: bilateral nonpitting edema, L>R NEUROLOGICAL: Grossly nonfocal. Alert and oriented, moving all 4 extremities. CN not formally tested but appear grossly intact. Skin: multiple round/coin-like excoriations of lower extremities in various stages of healing; left foot with scabbed over wound of first metatarsal; right foot notably edematous with erythematous swelling and scattered blister like lesions, 4th digit necrotic, large hemorrhagic bullous blister formation on sole of foot with tail like tracking from arch to 4th digit, exquisitely foul smelling Principal Diagnosis Sepsis secondary to gangrenous toe, cellulitis involving the right foot, severe peripheral vascular disease with status post multiple stents on the right leg, possible stent occlusion, type 2 diabetes Discharge Exam Lying in bed comfortably Constitutional + ill appearing and average body habitus Eyes PERRL, conjunctivae normal, anicteric sclerae ENMT external ear and nose normal, oropharynx normal Neck trachea midline, no thyromegaly Respiratory no respiratory distress Auscultation: lungs clear to auscultation bilaterally Cardiovascular Rate/Rhythm: regular rate and regular rhythm; not tachycardic Heart Sounds: normal S1 and normal S2; no murmur Extremities: + edema Gastrointestinal (Abdomen) Inspection/Auscultation: normal bowel sounds; abdomen not distended Percussion/Palpation: abdomen soft; abdomen nontender Lymphatic no cervical or axillary lymphadenopathy Discharge Data Allergies Allergy/AdvReac Type Severity Reaction Status Date / Time No Known Allergies Allergy Verified 03/28/21 02:27 Consultations 03/05/23 13:30 ED Decision to Admit Stat 03/05/23 13:36 Consult General Surgery Routine 03/05/23 14:57 Consult Infectious Diseases Routine 03/05/23 15:27 Consult Podiatry Routine 03/05/23 18:54 Consult Vascular Surgery Routine 03/06/23 12:20 Burn CD for patient Stat Procedures Performed Operation Date: 03/05/23 11:45 Actual Procedures p Incision and Drainage Infected Hematoma Right Foot Plantar Surface(Right) - Lm Goss-Ras, DO s Amputation right 4th Toe(Right) - Peter Teague, DARLINM, MS Ordered Studies 03/05/23 18:03 US arterial duplex LE BI Routine 03/05/23 18:04 MRI Foot [MR foot RT wo/w con] Routine Hospital Course (1) Gangrenous toe: (2) Severe sepsis: (3) Acute UTI: (4) Lactic acidosis: (5) Cellulitis of right foot: (6) T2DM (type 2 diabetes mellitus): (7) PAD (peripheral artery disease): Status post multiple stents placement in June 2021 in right leg as mentioned in H&P Arterial Doppler is showing obstruction of the stent in the vascular surgery advised the patient should be transferred to [place] for further evaluation and to save the leg Case discussed with Dr. Cornell, vascular surgery department in [place] who accepted her for transfer Discussed with the patient (8) HTN (hypertension): (9) HLD (hyperlipidemia): Plan This is a 72-year-old female who has a significant past medical history of T2DM, HTN, HLD, PAD and depression with anxiety who presents to ED secondary to R 4th black toe and redness to foot x 1 week. Severe sepsis Gangrenous toe Cellulitis of right foot Lactic acidosis Admitted to telemetry unit Broad-spectrum antibiotics with IV daptomycin, clindamycin and Zosyn Getting IV fluids and pain medications as needed Await blood, urine and wound culture Appreciate surgery input and recommendation Appreciate orthopedic input and recommendation Consult wound care Status post incision and drainage is of infected hematoma right foot plantar surface on 03/05/2023 Status post right fourth toe ray amputation on 03/05/2023 She has minimal pain involving the right foot-moves all the toes and ankles Reasonable flow in right anterior tibial with Doppler but no flow right posterior tibial with Doppler Reasonable flow in left anterior tibial and left posterior tibial Doppler Discussed with vascular surgeon and the behavioral health tech who advised transfer to [place] for limb salvation Discussed with Dr. Cornell,the vascular surgeon addendum and the patient will be transferred to [place] whenever there is a bed available Discussed with the patient and she is agreeable Consult infectious disease Acute UTI Await urine culture Empiric antibiotics as above Elevated troponin likely demand ischemia in setting of sepsis echo from outpatient 2019 revealed preserved EF Doubt any ACS Hypomagnesemia replete Corrected T2DM lantus/novolog per protocol recent a1c 6.9 hold metformin/glipizde HTN continue amlodipine, lisinopril given elevated BP she did not take her meds yet today will re eval post op HLD pt prescribed high dose statin 80mg, unsure if taking hold while on dapto PAD follows vascular surg at [place] prior re vascularization to RLE DVT ppx: will hold off for now, post operatively will add chemical prophylaxis with heparin once appropriate FULL CODE PCP: Dr. Light Dispo: PCU, cbc, cmp, mag in a.m. Total Time Total Time Spent Total Time Spent (In Minutes): 45 minutes Discharge Plan Discharge Items Patient Disposition: Transfer Acute Care Hospital Reason For Visit: R 4TH TOE GANGRENE Discharge Diagnosis: Sepsis secondary to gangrenous toe, cellulitis involving the right foot, severe peripheral vascular disease with status post multiple stents on the right leg, possible stent occlusion, type 2 diabetes Condition on Discharge: Fair Activity: Resume your previous activity Non-emergency contact: Primary Care Provider Call non-emergency contact if: you have any medication questions and your symptoms worsen Follow-up/Referrals: PCP,NO [Physician] - (Please make an appointment with your PCP within 7 days following discharge from the facility) Diet: Carb Consistent or DM2 and Heart Healthy Addtl Attending Provider Instructions: Please take precautions to avoid falls All of the inpatient medications were continued on discharge as below: Current Inpatient Medications Acetaminophen (Acetaminophen 325 Mg Tab) 650 mg PO Q4H PRN PRN Reason: Pain or Fever Stop: 04/04/23 19:45 Last Admin: 03/06/23 02:26 Dose: 650 mg Al Hydrox/Mg Hydrox/Simethicone (Aluminum/Magnesium Susp 30 Ml Udc) 15 ml PO Q4H PRN PRN Reason: Dyspepsia Stop: 04/04/23 19:45 Amlodipine Besylate (Amlodipine Besylate 5 Mg Tab) 5 mg PO DAILY VON Stop: 04/05/23 08:59 Last Admin: 03/06/23 08:58 Dose: 5 mg Dextrose (Dextrose 50% 50 Ml Syringe) 25 - 50 ml IV UD PRN; Protocol PRN Reason: Hypoglycemia Protocol Stop: 04/04/23 19:45 Glucagon (Glucagon For Inj 1 Mg Vial) 1 mg SQ UD PRN; Protocol PRN Reason: Hypoglycemia Protocol Stop: 04/04/23 19:45 Glucose (Glucose 10 Tab/Tube) 4 - 8 tab PO UD PRN; Protocol PRN Reason: Hypoglycemia Treatment Stop: 04/04/23 19:45 Glucose (Glucose 40% Gel 15 Gm Tube) 15 - 30 gm PO UD PRN; Protocol PRN Reason: Hypoglycemia Protocol Stop: 04/04/23 19:45 Hydromorphone HCl (Hydromorphone Inj 0.5 Mg/0.5 Ml Syr) 0.5 mg IV Q4H PRN PRN Reason: Mod-Sev Pain (Scale 4-10) Stop: 03/20/23 02:30 Last Admin: 03/06/23 09:00 Dose: 0.5 mg Daptomycin 375 mg/ Syringe 7.5 mls @ 3.75 mls/min IV Q24H [facility]; Protocol Stop: 03/12/23 13:59 Last Admin: 03/05/23 14:43 Dose: 3.75 mls/min Clindamycin Phosphate (Cleocin/D5w) 600 mg in 50 mls @ 100 mls/hr IV Q8H [facility] Stop: 04/16/23 21:59 Last Infusion: 03/06/23 05:30 Dose: Infused Piperacillin Sod/Tazobactam (Sod 4.5 gm/ Dextrose) 100 mls @ 25 mls/hr IV Q8H [facility]; Protocol Stop: 04/16/23 20:29 Last Infusion: 03/06/23 09:04 Dose: Infused Sodium Chloride (Nss) 1,000 mls @ 80 mls/hr IV .[id number] [facility] Stop: 04/04/23 19:45 Last Admin: 03/06/23 09:02 Dose: 80 mls/hr Insulin Aspart (Insulin Aspart Per Unit Charge) 0 units SC ACHS [facility] Stop: 04/05/23 11:29 Insulin Glargine (Lantus Per Unit Charge) 0 - 10 units SQ BID [facility] Stop: 04/04/23 20:59 Last Admin: 03/06/23 08:36 Dose: Not Given Lisinopril (Lisinopril 20 Mg Tab) 20 mg PO QAM [facility] Stop: 04/05/23 08:59 Last Admin: 03/06/23 08:58 Dose: 20 mg Magnesium Hydroxide (Magnesium Hydroxide Susp 30 Ml Udc) 30 ml PO Q12H PRN PRN Reason: Constipation Stop: 04/04/23 19:45 Miscellaneous (Carbohydrates For Hypoglycemia ) 15 - 30 gm PO UD PRN PRN Reason: Hypoglycemia Protocol Stop: 04/04/23 19:45 Miscellaneous Information (Pharmacy Glycemic Mgmt Consult) 1 each N/A UD PRN PRN Reason: Consult Stop: 04/04/23 19:45 Ondansetron HCl (Ondansetron Inj 2 Mg/Ml 2 Ml Vial) 4 mg IV Q6H PRN PRN Reason: Nausea Stop: 04/04/23 19:45 Polyethylene Glycol (Polyethylene (Miralax) 17 Gm Pack) 17 gm PO DAILY PRN PRN Reason: Constipation Stop: 04/04/23 19:45 Potassium Chloride (Potassium Chloride Crtab 20 Meq Tabcr) 20 meq PO TODAY@0645 [facility] Stop: 03/06/23 12:00 Last Admin: 03/06/23 09:37 Dose: 20 meq Pending Studies at Discharge: Yes Studies:: Blood culture Stand-Alone Forms: My [facility] Skilled Items Patient informed of condition?: Yes DNR: No Discharge Level of Care: Other Communicable Disease: No Discharge Prognosis: Stable Lines: Peripheral IV Urinary Catheter: No Medications and DC Order Prescriptions: Continued metformin 1,000 mg tablet 1,000 mg PO BIDM lisinopril-hydrochlorothiazide 20-25 mg tablet 20 - 25 tab PO DAILY atorvastatin 80 mg Tablet 80 mg PO HS clopidogrel 75 mg Tablet 75 mg PO DAILY amlodipine 5 mg Tablet 5 mg PO DAILY aspirin [Aspir-81] 81 mg Tablet,Delayed Release (Dr/Ec) 81 mg PO DAILY glipizide 5 mg Tablet 5 mg PO BID Discharge Orders: Discharge Order (Routine); Ordered 03/06/23 Ordered By: Cassie Gipson Admission Data Admit Date/Time: 03/05/23 14:15 Attending Provider: Cassie Gipson Admit Provider: Lilliana Huerta Primary Care Provider: Polina Light Other Providers: Magdiel Waters; Edvin May; Srikanth Cantrell I.; Ananda Ronquillo II; Hoda Penn; Chadnan Stern; Barry Hewitt; Elzbieta Rainey; Peter Teague; Lilliana Huerta; Lm Steele; Sanya Del Valle i Supervising Physician Co-Signing Physician Notes I have seen and discussed the case with the collaborating MILTON. I agree with the above H&P. I have reviewed and confirmed the patients medical history, the findings on physical examination, and the patients diagnosis and treatment plan with Florin ROSE and agree with the information documented. In short, Ms. Chatterjee is a 72 year old woman with a past medical history of HTN, DMTII, severe PAD, and medication non-compliance who is admitted due to concern of sepsis secondary to cellulitis, and ?necrotizing fasciitis. Patient reports hitting foot on table, with subsequent discoloration of right 4th toe then progression of wound and pain. She states that there were multiple issues with her medications and pharmacy changes, as well as suggesting that she does not take her medications as directed taking some "three or so times daily" and then "spacing it out" as the script comes to an end before refill date. Patient poor historian overall and tends to digress. Physical exam GENERAL APPEARANCE: AxOx4, disheveled in appearance HEENT: NC, AT. MMM. EOMI, clear conjunctiva, oropharynx clear. lesion of excoriation on left side of nasal bridge NECK: Supple without lymphadenopathy. No stiffness or restricted ROM. HEART: tachycardic LUNGS: CTAB, moving air well. No crackles or wheezes are heard. ABDOMEN: Soft, nontender, nondistended with good bowel sounds heard. BACK: No CVAT, no obvious deformity. Multiple scabbed over excoriations without signs over superimposed infection EXTREMITIES: bilateral nonpitting edema, L>R NEUROLOGICAL: Grossly nonfocal. Alert and oriented, moving all 4 extremities. CN not formally tested but appear grossly intact. Skin: multiple round/coin-like excoriations of lower extremities in various stages of healing; left foot with scabbed over wound of first metatarsal; right foot notably edematous with erythematous swelling and scattered blister like lesions, 4th digit necrotic, large hemorrhagic bullous blister formation on sole of foot with tail like tracking from arch to 4th digit, exquisitely foul smelling XRAY with concern for gas formation #Sepsis secondary to cellulitis/UTI #Severe cellulitis, concern for necrotizing fasciitis -Surgery consulted--plan for I/D in [place] -Zosyn, Dapto, Clindamycin for coverage for necrotizing fasciitis, follow cultures and narrow as able -Plan for podiatry consult for necrotic digit -EDD/TBI ordered 2/2 hx of PAD #Medication noncompliance -Holding home medications and resume as able; will require counselling on medications and proper using once discharge regimen established. Consider HH Rest of plan as above.
[2023-03-06] MEDS: INSULIN ASPART PER UNIT CHARGE SC SCH ×2 (12:45→20:04)
[2023-03-06] MEDS: DAPTOmycin 375 MG in SYRINGE 0 ML IV SCH (14:08)
--- NOTE | 2023-03-06 15:25 | Infectious Disease Consult ---
Date of Service March 06, 2023 Telehealth Information I performed this visit using a real-time telehealth connection between my location and the patients location ([facility]). After connecting through interactive tele-video, patient was identified by name and date of and/or wristband check.Patient (or authorized healthcare medical representative) was informed that this was a telemedicine visit and it was being conducted confidentially over secure lines. My office door was closed and no one else was present in the room with me.Patient (or authorized healthcare medical representative) provided consent to proceed with the visit, expressed an understanding of privacy and security of the telemedicine visit, and gave permission to have a hospital medical representative in the room in order to assist with the visit and to conduct portions of the visit, as needed. I informed the patient (or authorized healthcare medical representative) that I reviewed their record and presented the opportunity for them to ask any questions regarding the visit today. The patient agreed to participate. Assessment & Plan (1) Gangrenous toe: (2) Cellulitis of right foot: (3) Status post amputation of toe of right foot: (4) PAD (peripheral artery disease): Plan - I have no concerns for necrotizing fasciitis and cultures already growing grp G strep ith no MRSA. Therefore, I would recommend stopping daptomycin and clindamycin and keeping only on piperacillin/tazobactam. - We will follow-up on the intraoperative cultures until they finalize and decide on the final plan of antibiotics. - Since there is no evidence of osteomyelitis per MRI after surgery, we might be able to give a short course antibiotics (possibly oral) when the orthopedic team has no further plans for surgery. - Thank you for involving us in the care of Ms. Chatterjee. We will continue to follow. History of Present Illness History of Present Illness Ms. Chatterjee is a 72-year-old woman with medical history of type 2 diabetes, HTN, hyperlipidemia, severe peripheral vascular disease and major depressive disorder/anxiety disorder who was admitted to [facility] on 03/05 because of right fourth toe infection. Apparently, she had history of severe peripheral vascular disease s/p angioplasty and stenting of the anterior tibial artery, right tibioperoneal trunk, right superficial femoral artery and popliteal artery in June 2021. Now, she is coming with right fourth toe blackish discoloration and gangrenous changes. She was also having drainage with bullae formation and localized cellulitis of the foot. Foot x-ray obtained on admission showed scattered to skin ulcerations within the forefoot and heel with lucency at the head of the proximal phalanx of the left fifth toe. She was then taken for I&D and underwent right fourth toe ray amputation on the day of admission. An MRI of the right foot was performed after surgery which showed large wound in the fourth webspace and along the plantar surface of the foot (site of surgery) without any residual fluid collection or abscess and no evidence of osteomyelitis of any of the metatarsals. ID team was consulted for further recommendations and to help with the management of antibiotics. Allergies Allergy/AdvReac Type Severity Reaction Status Date / Time No Known Allergies Allergy Verified 03/28/21 02:27 Home Medications Medication Instructions Recorded Confirmed Type amlodipine 5 mg tablet 5 mg PO DAILY 03/05/23 03/05/23 History aspirin 81 mg tablet,delayed 81 mg PO DAILY 03/05/23 03/05/23 History release atorvastatin 80 mg tablet 80 mg PO HS 03/05/23 03/05/23 History clopidogrel 75 mg tablet 75 mg PO DAILY 03/05/23 03/05/23 History glipizide 5 mg tablet 5 mg PO BID 03/05/23 03/05/23 History lisinopril 20 20 - 25 tab PO DAILY 03/05/23 03/05/23 History mg-hydrochlorothiazide 25 mg tablet metformin 1,000 mg tablet 1,000 mg PO BIDM 03/05/23 03/05/23 History Patient History Medical History T2DM (type 2 diabetes mellitus) HLD (hyperlipidemia) PAD (peripheral artery disease) Mr. Chatterjee returns to clinic s/p percutaneous transluminal angioplasty of the right anterior tibial artery (2.5 x 40 mm [place] balloon), percutaneous transluminal angioplasty of the right tibioperoneal trunk (2.5 x 40 mm [place] balloon) and percutaneous transluminal angioplasty and stenting of the right superficial femoral artery and popliteal artery (6 x 100 mm and 6 x 40 mm [place] stents, post-dilated to 5 mm) by Dr. Mckeon 06/21/2021. Psoriasis No pertinent family history HTN (hypertension) Syncope and collapse Head injury Surgical History (Updated 03/06/23 @ 15:28 by Elzbieta Rainey MD) History of incision and drainage (03/05/23) Incision and Drainage Infected Hematoma Right Foot Plantar Surface - Lm Steele DO Hx of lithotripsy Hx of angioplasty Family History Mother Cancer brain cancer age 76 Father Diabetes Social History Smoking Status: Current some day smoker Cigarettes Per Day: 3 cigarettes/month; Second Hand Exposure: Yes; Hx Alcohol Use: No Hx Substance Use: No Preferred Language: Italian Communication Ability: Effective Visual Impairment: No Limitations Hearing Ability: Normal Candles Pourer Required: No Beliefs That Will Affect Care: None marital status: / Current Living Situation: Alone Current Living Situation Comment: Lives alone in apartment Feels Safe at Home: Yes Assistive Devices: Denture - Upper Review of Systems Constitutional: Fatigue, but no fever or chills HEENT: no sore throat, no nasal discharge Cardiovascular: no chest pain, or palpitations Respiratory: no shortness of breath, no cough Gastrointestinal: No nausea, vomiting, diarrhea or abdominal pain : no dysuria or urgency Musculoskeletal/Skin: minimal Rt foot pain post op Neurologic: no dizziness or headache Physical Exam Couldn't be obtained as the consult was performed via telemed. Results & Data Vital Signs (Past 12 Hours) Vital Signs Temp Pulse Pulse Resp BP Pulse Ox O2 Del Method 03/06/23 13:06 36.8 C 87 93 H 19 106/71 95 03/06/23 12:31 36.8 C 93 H 19 106/71 95 Room Air 03/06/23 07:39 36.4 C L 103 H 18 108/71 90 Room Air 03/06/23 07:27 Room Air Laboratory Results Microbiology: 03/05: 2 sets of blood cultures negative to date 03/05: Urine culture still pending 03/05: 2 intraoperative tissue culture grew group G beta strep Diagnostic Findings MRI Rt foot on 03/05 (post op): Amputation of the fourth ray at the level of the distal metatarsal. Large wound in the fourth webspace and along the plantar surface of the foot. Recommend wound care evaluation. No fluid collection or abscess. No MR evidence of osteomyelitis of the metatarsals.
--- NOTE | 2023-03-06 15:48 | Emergency Department Note ---
ED Visit Note I was consulted by the Advanced Practice Provider. The case was discussed at length. The patient presents with a necrotic toe and cellulitis. She was tachycardic and ill appearing. On workup she had a significant leukocytosis and an elevated lactic acid. She meet criteria for sepsis. She received empiric antibiotics and IV fluids. The hospitalist service has been consulted. .
--- NOTE | 2023-03-06 15:56 | Procedure Note ---
Procedure Note Date of Service March 06, 2023 Note Procedure Date: Noted above Procedure: Endotracheal intubation Pre-procedure Diagnosis: CODE BLUE: Cardiac arrest Post-procedure Diagnosis: same as above Prior to Procedure: Informed Consent: emergent Attending Staff: Kristina Macdonald DO The identity of the patient was confirmed and a bedside time out was performed. Description of Procedure: Patient was evaluated and required intubation for impending respiratory failure. The patient was prepared in the usual fashion. A 3 MAC laryngoscope was used. A 7.5 mm inner diameter endotrachial tube was placed endotracheally to 23 cm at the teeth. A grade 1 view was obtained. The endotracheal tube was noted to pass through the vocal cords. Chest rise was bilateral. Bilateral breath sounds were heard without air sounds in the abdomen. Mist was noted in the endotracheal tube. End-tidal CO2 measurement was positive. Complications: None Findings: Not applicable Specimens: Not applicable Estimated blood loss: Zero Coding CPT Codes Resuscitation - Resuscitation: 05182 Endotracheal Intubation, emergency ([id number]) [facility] Procedure Codes (Charges) Resuscitation Resuscitation: 70637 Endotracheal Intubation, emergency
[2023-03-06] MEDS ORDERED: STAT IV Infusion **Titration per Protocol STA ×4 (16:18→20:02)
--- NOTE | 2023-03-06 16:27 | Communication Note ---
Date of Service: March 06, 2023 Attending addendum; The patient was noted to have pauses on the monitor and the nurse found that to be choking on food and noted to have cyanotic and no pulse and a CODE BLUE was called around 3:50 PM. Attended by the code team the patient has had CPR and was intubated. Received intravenous amiodarone and also intravenous epinephrine during the process. The pulse came back and the blood pressure was noted to very high. She was transferred to ICU for continued care. Possible causes of cardiac arrest; ACS, massive pulmonary embolism, aspiration, ongoing sepsis The was updated about the above condition and was warned that she might have another attack given the significant history of peripheral artery disease. We discussed about further resuscitation status and he mentioned that she will be full code for now. The did inform the daughter and who will be here shortly. The patient was reevaluated at around 7:15 PM in presence of the family members She is intubated now and remains hemodynamically stable She has been following vocal commands by opening eyes and trying to talk, she moves all extremities with vocal commands CT scan of the head showed right temporal hypodensity new from prior exam which may represent an age indeterminate infarct CT of the chest-no evidence of pulmonary embolism. Showed multifocal airspace opacities may represent aspiration/pneumonia/contusion or alveolar edema. Moderate right and mild left pleural effusion CT of the abdomen pelvis remained unremarkable but showed body wall edema The case was discussed with the apartment house manager and also vascular surgeon Dr. Cornell She is being accepted to ICU, [facility] in [place] for further evaluation by the vascular surgery Discussed with the family members in detail and updated them. Answered all of their questions Dr Lance Gipson
[2023-03-06] MEDS ORDERED: EPINEPHrine/NSS 4 MG/254 ML BAG IV SCH (16:30)
[2023-03-06] MEDS ORDERED: NOREPINEPHRINE/D5W 4 MG/250 ML IV ONE (16:40)
[2023-03-06] MEDS ORDERED: SODIUM BICARB 8.4% INJ 50 MEQ/50 ML SYR IV ONE (16:49)
[2023-03-06] MEDS ORDERED: fentaNYL citrate PF 100 MCG/2 ML VIAL ONE (16:53)
[2023-03-06 17:07] LABS: Hematocrit (blood only) 43.4 % (37.0-47.0); Hemoglobin 13.5 g/dl (12.0-16.0); Mean Corpuscular Hemoglobin 28.3 pg (25.0-34.0); Mean Corpuscular Hgb Conc 31.1 g/dL (32.0-36.0); Mean Platelet Volume 11.3 fL (9.4-12.4); Nucleated RBC # (auto) 0.04 K/uL (0.00-0.12); Nucleated RBC % (auto) 0.2 %; Platelet Count 258 K/uL (130-400); RDW Coefficient of Variation 16.1 % (11.5-14.5); RDW Standard Deviation 53.3 fL (36.4-46.3); Red Blood Count 4.77 M/uL (4.20-5.40); White Blood Count 19.49 K/ul (4.8-10.8)
[2023-03-06] MEDS ORDERED: VANCOMYCIN HCL 1,500 MG in SODIUM CHLORIDE 0.9% 500 ML IV ONE (17:17)
[2023-03-06] MEDS ORDERED: VANCOMYCIN CONSULT ACTIVE PRN (17:17)
[2023-03-06] MEDS ORDERED: fentaNYL BOLUS from BAG IV PRN (17:19)
[2023-03-06] MEDS ORDERED: fentaNYL citrate 2,500 MCG/250 ML BAG IV ONE (17:19)
[2023-03-06 17:25] LABS: BUN Creatinine Ratio 20.5 (10-20); Calcium 7.3 mg/dl (8.6-10.3); Est GFR (African American) 51.6 ml/min; Est GFR (Non-African American) 44.5 ml/min; Potassium 4.2 mmol/L (3.5-5.1)
[2023-03-06] MEDS ORDERED: STAT IV/IM STA (17:29)
[2023-03-06] MEDS ORDERED: SODIUM BICARB 8.4% INJ 50 MEQ/50 ML SYR IV STA (17:29)
[2023-03-06] MEDS ORDERED: SODIUM BICARBONATE 8.4% 150 MEQ in DEXTROSE 5% 1,000 ML IV SCH (17:30)
[2023-03-06] MEDS ORDERED: VANCOMYCIN HCL 2,000 MG in SODIUM CHLORIDE 0.9% 500 ML IV ONE (17:30)
[2023-03-06] MEDS ORDERED: fentaNYL citrate 2,500 MCG/250 ML BAG IV SCH (17:30)
[2023-03-06] MEDS ORDERED: OPTIRAY 320 125ml IV ONE (17:44)
--- NOTE | 2023-03-06 17:45 | Procedure Note ---
Procedure Note Date of Service March 06, 2023 Note FEMORAL ARTERIAL LINE PROCEDURE NOTE: Procedure: Femoral arterial Line Placement Indication: Need for hemodynamic monitoring and frequent lab draws Anesthesia: None Emergent consent was implied given the patient was. Cardiac arrest. A time-out was completed verifying correct patient, procedure, site, positioning, and implants(s) or special equipment if applicable. Patients right groin was cleansed and draped in the typical sterile fashion using Chloraprep. The Femoral Vein and Femoral Artery were identified using ultrasound. The superficial tissue was anesthetized using 0 mL of 1% lidocaine without epinephrine under direct visualization with the ultrasound. After adequate anesthetization was achieved, the Femoral Vein was cannulated under direct ultrasound guidance using an introducer needle on a syringe. Good venous blood return was maintained prior to removal of syringe from introducer needle. Using Seldinger Technique, a guide wire was advanced through the introducer needle without resistance. The introducer needle was removed and ultrasound images were obtained of the guide wire within the Femoral artery and saved to the patients medical record. A small incision was made in penetrating fashion at the guide wire insertion site utilizing an 11 blade scalpel. The angiocatheter was inserted over the wire with minimal resistance. The wire was removed and found to be intact. The Angiocath was sutured in place. The catheter was connected to the monitoring system and adequate arterial waveform was identified. Procedure ultrasound guidance was utilized. Coding CPT Codes Tubes, Drains, and Vasc Access - Tubes, Drains, and Vasc Access: [id number] Arterial Cath/Cannulation Sampling/Monitoring/Transfusion ([id number]) Tubes, Drains, and Vasc Access - Tubes, Drains, and Vasc Access: [id number] Ultrasonic Guide For Needle Placement ([id number]) [facility] [place] Procedure Codes (Charges) Tubes, Drains, and Vasc Access Procedure 1: Tubes, Drains, and Vasc Access: [id number] Arterial Cath/Cannulation Sampling/Monitoring/Transfusion Procedure 2: Tubes, Drains, and Vasc Access: [id number] Ultrasonic Guide For Needle Placement
--- NOTE | 2023-03-06 17:47 | Procedure Note ---
Procedure Note Date of Service March 06, 2023 Note INTERNAL JUGULAR CENTRAL LINE PROCEDURE NOTE: Procedure: Internal Jugular Central Line Placement Indication: Central Drug Administration, Poor Venous Access, Multiple Lab Draws Necessary, etc. Anesthesia: 50 mcg Fentanyl bolus Emergency consent was implied given the emergent nature of the procedure. A time-out was completed verifying correct patient, procedure, site, positioning, and implants(s) or special equipment if applicable. Patients right neck was cleansed and draped in the typical sterile fashion using Chloraprep. The Internal Jugular Vein and Carotid Artery were identified using ultrasound. The superficial tissue was anesthetized using 0 mL of 1% lidocaine without epinephrine under direct visualization with the ultrasound. After adequate anesthetization was achieved, the Internal Jugular vein was cannulated under direct ultrasound guidance using an introducer needle on a syringe. Good venous blood return was maintained prior to removal of syringe from introducer needle. Using Seldinger Technique, a guide wire was advanced through the introducer needle without resistance. The introducer needle was removed and ultrasound images were obtained of the guide wire within the Internal Jugular Vein and saved to the patients medical record. A small incision was made in penetrating fashion at the guide wire insertion site utilizing an 11 blade scalpel. The dilator was advanced to the vessel without resistance. The dilator was exchanged for the triple lumen catheter which was advanced into the vessel without resistance. The guide wire was removed intact from the catheter without issue. Claves were placed on each catheter tip with confirmation of good blood flow from each lumen. Each port was easily flushed with sterile saline. The catheter was placed at 17 cm and sutured in place. BioPatch was applied to the catheter and a sterile Tegaderm dressing was applied over the catheter with careful attention to sterility. Patient tolerated procedure well. No immediate complications were met. Coding CPT Codes Tubes, Drains, and Vasc Access - Tubes, Drains, and Vasc Access: [id number] Place catheter in vein superior or inferior vena cava ([id number]) Tubes, Drains, and Vasc Access - Tubes, Drains, and Vasc Access: [id number] Ultrasonic Guide For Needle Placement ([id number]) [facility] [place] Procedure Codes (Charges) Tubes, Drains, and Vasc Access Procedure 1: Tubes, Drains, and Vasc Access: [id number] Place catheter in vein superior or inferior vena cava Procedure 2: Tubes, Drains, and Vasc Access: [id number] Ultrasonic Guide For Needle Placement
[2023-03-06 17:48] LABS: INR 1.6 (0.9-1.1); Partial Thromboplastin Ratio 1.6; Partial Thromboplastin Time 45 Seconds (21-31); Prothrombin Time 16.8 Seconds (9.0-12.0)
[2023-03-06 17:49] LABS: iSTAT Art Bld Gas pCO2 Correct 36 mmHg (35-46); iSTAT Art Bld Gas pH Corrected 7.166 (7.35-7.45); iSTAT Arterial Blood Gas HCO3 13 meg/L (19-24); iSTAT Arterial Blood Gas pCO2 36 mmHg (35-46); iSTAT Arterial Blood Gas pH 7.17 (7.35-7.45); iSTAT Arterial Blood Gas pO2 54 mmHg (80-95); iSTAT Arterial Blood Gas pO2 C 54; iSTAT Carbon Dioxide 14 mmol/L (24-31); iSTAT FiO2 100 %; iSTAT Hematocrit 44 % (37-47); iSTAT Potassium 4.2 mmol/L (3.3-5.0); iSTAT Site Art Line; iSTAT Sodium 139 mmol/L (135-144)
[2023-03-06 17:49] LABS: iSTAT Allen Test Pass; iSTAT Art Bld Gas pCO2 Correct 75 mmHg (35-46); iSTAT Art Bld Gas pH Corrected 7.083 (7.35-7.45); iSTAT Arterial Blood Gas HCO3 22 meg/L (19-24); iSTAT Arterial Blood Gas pCO2 75 mmHg (35-46); iSTAT Arterial Blood Gas pH 7.08 (7.35-7.45); iSTAT Arterial Blood Gas pO2 < 32 mmHg (80-95); iSTAT Arterial Blood Gas pO2 C 25; iSTAT Carbon Dioxide 25 mmol/L (24-31); iSTAT FiO2 100 %; iSTAT Hematocrit 50 % (37-47); iSTAT Potassium 3.7 mmol/L (3.3-5.0); iSTAT Site L Radial; iSTAT Sodium 139 mmol/L (135-144)
--- NOTE | 2023-03-06 18:17 | CT Scan Report ---
CT head/brain wo con CLINICAL HISTORY: code blue Technique: Contiguous axial CT images of the head were acquired from the base of the skull to the camacho abelardo without intravenous contrast administration. Images were viewed in brain, subdural and bone [facility] . Automated dose lowering techniques and/or adjustment according to patient size were utilized for this exam. Comparison: Comparison is made to CT head 01/26/2022 Findings: There is a hypodensity in the right temporal lobe which is not seen in prior exam. Likely age-related volume loss is seen. Imaged portions of the paranasal sinuses and mastoid air cells are clear. The orbits appear normal. There are no acute fractures of the calvaria or scalp swelling. Impression: Right temporal hypodensity is seen, new from prior exam, which may represent an age-indeterminate inf arct. ACT 112: Negative or not required by law. Electronically signed by: Mateo Nguyen M.D. 03/06/2023 6:16 PM
[2023-03-06 18:39] LABS: iSTAT Art Bld Gas pCO2 Correct 39 mmHg (35-46); iSTAT Art Bld Gas pH Corrected 7.284 (7.35-7.45); iSTAT Arterial Blood Gas HCO3 18 meg/L (19-24); iSTAT Arterial Blood Gas pCO2 38 mmHg (35-46); iSTAT Arterial Blood Gas pO2 96 mmHg (80-95); iSTAT Arterial Blood Gas pO2 C 101; iSTAT Carbon Dioxide 19 mmol/L (24-31); iSTAT FiO2 50 %; iSTAT Hematocrit 41 % (37-47); iSTAT Hemoglobin 13.9 g/dl (12.0-16.0); iSTAT Potassium 3.4 mmol/L (3.3-5.0); iSTAT Site Art Line; iSTAT Sodium 138 mmol/L (135-144)
--- NOTE | 2023-03-06 18:39 | Critical Care Consultation ---
Date of Consultation March 06, 2023 Assessment & Plan (1) Cardiac arrest: (2) Status post amputation of toe of right foot: (3) Cellulitis of right foot: (4) ARDS (adult respiratory distress syndrome): (5) Septic shock: (6) Lactic acidosis: Plan 72-year-old female with a history of peripheral vascular disease, right lower extremity cellulitis and ischemic limb to the right lower extremity who developed cardiac arrest this afternoon. ROSC was obtained after approximately [address] head, abdomen pelvis, chest were completed. Patient has evidence of aspiration pneumonia and ARDS. Neurologic: Patient currently following commands despite sedation. Will maintain RASS goal of -1. Will maintain euthymia. No indication for hypothermic protocol at this time as the patient is following commands. Continue fentanyl for pain control. Considering the addition of further sedation if required to maintain ventilator synchrony and patient comfort. Pulmonary: Patient with evidence of ARDS. Continue lung protective ventilation strategy. Patient will likely require bronchoscopy if she becomes more stable to evaluate for possible diffuse alveolar hemorrhage as she does have some frothy red sputum which may be related to pulmonary contusion given chest compressions. No evidence of large pulmonary embolism noted on CT chest. Will cover for infectious etiology probably. Obtain sputum culture. Possible aspiration pneumonia. Cardiovascular: Patient with evidence of cardiac arrest. Maintain MAP above 65. Epinephrine weaned off. Patient currently on norepinephrine. Plan of care ultrasound revealed no evidence of pericardial effusion. There appears to be myocardial stunning. IVC was grossly dilated. Mixing artifact was noted. No obvious evidence of clot in the IVC or clot in transit in the RA or RV. Gastrointestinal: NPO. Protonix 40 mg daily. Renal: Hall catheter in place. Patient with lactic acidosis due to ischemic limb and cardiogenic/septic shock. Infectious disease: Sources of infection include pulmonary aspiration and cellulitis of the right lower extremity. Will cover broadly with vancomycin, Zosyn and azithromycin. Urine Legionella sent. Obtain blood cultures, sputum cultures and urine cultures. Patient did have emergent placement of right femoral arterial catheter and right internal jugular central venous line. These were placed emergently in a nonsterile manner. These will need to be removed JEN and sterile lines will need to be placed. Hematologic: Patient may have diffuse alveolar hemorrhage given CPR and appearance on CT chest. Will hold anticoagulant at this time. Endocrine: Check TSH and random cortisol VTE prophylaxis: SCDs CODE STATUS: Full Family at bedside: Patient's daughter, sister, fianc and grandson updated in the waiting room. Disposition: Patient has been accepted for transfer to the MICU in [place]. Transportation is being arranged. Care was coordinated with the ICU nurse, respiratory therapy, hospitalist service and overnight ICU TO. I have personally spent 103 minutes of critical care time in the direct management of this patient. This is a life/limb threatening event. This includes time spent evaluating patient, direct bedside care, chart review, placing orders, interpretation of diagnostic studies, discussion with consultants, patient, and family members, as well as other required patient management activities. This time is exclusive of all separately billable procedures, and teaching time and separate from and in addition to any other critical care service time. Thank you for allowing us to participate in the care of this patient. History of Present Illness Reason for Consultation: Cardiac arrest Attending Physician: Cassie Gipson MD History of Present Illness 72-year-old female with a history of type 2 diabetes mellitus, hypertension, hyp erlipidemia, severe peripheral vascular disease and depression who presented to the ER 03/05 because of a right fourth toe infection. She has a history of angioplasty and stenting to the right anterior tibial artery, right tibioperoneal trunk, right superficial femoral artery and popliteal artery in June 2021. 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 Late this afternoon she was found to be bradycardic and hypoxemic and ultimately had a cardiac arrest which lasted approximately 9 minutes. In the midst of the cardiac arrest she was found to be in wide-complex tachycardia and underwent cardiac defibrillation x 2 and 1 dose of amiodarone, 300 mg. She also received 3 doses of IV epinephrine and a dose of vasopressin. ROSC was obtained the patient was emergently intubated. She was then transferred to the ICU and an emergent right femoral arterial line was placed and right internal jugular line. She was then sent for a stat CT head, CT chest and CT abdomen pelvis with contrast. CT chest revealed bilateral pulmonary edema with right lower lobe collapse and right greater than left pleural effusions. No significant pulmonary embolism was identified. CT abdomen pelvis was negative for acute pathology. CT head without acute intracranial pathology. She was found to be acidotic on ABG with metabolic acidosis which improved with fluids. Her family was updated in the waiting room. They indicate that the patient is typically independent and able to take care of herself at home. The patient lives alone. Her fianc lives a few minutes away. Allergies Allergy/AdvReac Type Severity Reaction Status Date / Time No Known Allergies Allergy Verified 03/28/21 02:27 Home Medications Medication Instructions Recorded Confirmed Type amlodipine 5 mg tablet 5 mg PO DAILY 03/05/23 03/05/23 History aspirin 81 mg tablet,delayed 81 mg PO DAILY 03/05/23 03/05/23 History release atorvastatin 80 mg tablet 80 mg PO HS 03/05/23 03/05/23 History clopidogrel 75 mg tablet 75 mg PO DAILY 03/05/23 03/05/23 History glipizide 5 mg tablet 5 mg PO BID 03/05/23 03/05/23 History lisinopril 20 20 - 25 tab PO DAILY 03/05/23 03/05/23 History mg-hydrochlorothiazide 25 mg tablet metformin 1,000 mg tablet 1,000 mg PO BIDM 03/05/23 03/05/23 History Patient History Medical History (Updated 03/06/23 @ 19:04 by Luis E Montalvo MD) Septic shock ARDS (adult respiratory distress syndrome) Cardiac arrest T2DM (type 2 diabetes mellitus) HLD (hyperlipidemia) PAD (peripheral artery disease) Mr. Chatterjee returns to clinic s/p percutaneous transluminal angioplasty of the right anterior tibial artery (2.5 x 40 mm Lawrence balloon), percutaneous transluminal angioplasty of the right tibioperoneal trunk (2.5 x 40 mm Lawrence balloon) and percutaneous transluminal angioplasty and stenting of the right superficial femoral artery and popliteal artery (6 x 100 mm and 6 x 40 mm Porsha stents, post-dilated to 5 mm) by Dr. Mckeon 06/21/2021. Psoriasis No pertinent family history HTN (hypertension) Syncope and collapse Head injury Surgical History (Updated 03/06/23 @ 15:28 by Elzbieta Rainey MD) History of incision and drainage (03/05/23) Incision and Drainage Infected Hematoma Right Foot Plantar Surface - Lm Steele DO Hx of lithotripsy Hx of angioplasty Family History Mother Cancer brain cancer age 76 Father Diabetes Social History Smoking Status: Current some day smoker Cigarettes Per Day: 3 cigarettes/month; Second Hand Exposure: Yes; Hx Alcohol Use: No Hx Substance Use: No Preferred Language: Libyan Communication Ability: Effective Visual Impairment: No Limitations Hearing Ability: Normal Document Photographer Required: No Beliefs That Will Affect Care: None marital status: / Current Living Situation: Alone Current Living Situation Comment: Lives alone in apartment Feels Safe at Home: Yes Assistive Devices: Denture - Upper Review of Systems Review of Systems: All systems reviewed & are unremarkable except as noted in HPI & below Physical Exam Physical Exam: Constitutional: Patient appears to be of their stated age. Patient is in no apparent distress. Patient is well-developed. Eyes: Pupils are equal round and reactive to light. Conjunctivae are normal. Anicteric sclera. Ears nose, mouth and throat: Endotracheally intubated. Neck: Trachea is midline. Visual inspection is normal. Respiratory: Coarse lung sounds bilaterally. Mild crackles in the lower lobes. Diminished. Tachypneic. Cardiovascular: Diffusely edematous. Regular rhythm. Tachycardic. Gastrointestinal: Normal bowel sounds, soft, nontender and nondistended. No hepatosplenomegaly noted. Musculoskeletal: No cyanosis. Patient is able to move all extremities. Strength is 5 out of 5 in the upper and lower extremities. Skin: No rashes, warm dry and intact. Neurologic: She does follow simple commands. No focal signs at this time. Psychiatric: Difficult to assess as she is intubated and sedated. Results & Data Results & Data Vital Signs (Past 12 Hours) Vital Signs Temp Pulse Pulse Resp BP Pulse Ox O2 Del Method 03/06/23 13:06 36.8 C 87 93 H 19 106/71 95 03/06/23 12:31 36.8 C 93 H 19 106/71 95 Room Air 03/06/23 07:39 36.4 C L 103 H 18 108/71 90 Room Air 03/06/23 07:27 Room Air Coding Level of Care Code 05941 Prolonged Care (int'l) Diagnoses Cardiac arrest I46.9 Status post amputation of toe of right foot Z89.421 Cellulitis of right foot L03.115 ARDS (adult respiratory distress syndrome) J80 Septic shock A41.9; R65.21 Lactic acidosis E87.20
[2023-03-06] MEDS: NOREPINEPHRINE/D5W 4 MG/250 ML PLCT IV SCH ×2 (18:41→20:38)
--- NOTE | 2023-03-06 18:41 | CT Scan Report ---
CT angio chest PE protocol CLINICAL HISTORY: PE TECHNIQUE: Multidetector row helical CT of the chest was performed with angiographic protocol. Montes l and sagittal reformations were obtained. Coronal and sagittal MIPS were obtained from the axial vinay a set and were submitted for review. Automated dose lowering techniques and/or adjustment according to patient size were utilized for this exam. CT DOSE: 3183.82 mGy.cm Comparison: Comparison is made to CT chest 04/15/2017 FINDINGS: Lungs and pleura: Moderate right and mild left pleural effusion. Multifocal consolidative and groundg lass opacities. Smooth interlobular septal thickening is seen compatible with pulmonary edema. Heart and pericardium: Cardiomegaly is seen with biatrial enlargement. Vessels: No evidence of pulmonary embolism. Mediastinum and josé miguel: Unremarkable. Chest wall and lower neck: Unremarkable. Abdomen: Unremarkable. Bones: Degenerative changes in the thoracic spine. IMPRESSION: 1. No evidence of pulmonary embolus. 2. Multifocal airspace opacities may represent aspiration, pneumonia, contusion, or alveolar edema. At least moderate pulmonary edema is seen. 3. Moderate right and mild left pleural effusions. ACT 112: Negative or not required by law. Electronically signed by: Mateo Nguyen M.D. 03/06/2023 6:39 PM
--- NOTE | 2023-03-06 18:46 | CT Scan Report ---
CT abd pelvis IV con only CLINICAL HISTORY: code blue TECHNIQUE: Helical axial images of the abdomen and pelvis were obtained and displayed. Automated dose lowering techniques and/or adjustment according to patient size were utilized for this exam. This e xam was performed with intravenous contrast. COMPARISON: Comparison is made to CT abdomen pelvis 04/18/2011 FINDINGS: Lower chest: For findings above the diaphragm, please see CT chest performed same day. Liver: Unremarkable. No focal lesions are seen. Gallbladder and biliary tree: The gallbladder appears mildly distended without wall thickening. No in tra- or extrahepatic biliary ductal dilation. Pancreas: Unremarkable, no focal lesions. Spleen: Unremarkable. Adrenals: Unremarkable. Kidneys and ureters: Dilated left renal pelvis is seen. Bladder: Hall catheter is seen. Reproductive organs: Unremarkable. Bowel: Unremarkable. Lymph nodes Retroperitoneal: Unremarkable. Pelvic: Unremarkable. Mesenteric: Unremarkable. Peritoneum: Peritoneal stranding is seen. Vessels: Atherosclerotic calcifications are seen. Abdominal wall: Prominent body wall edema is seen. Bones: Degenerative changes in the visualized spine. IMPRESSION: 1. No acute abnormalities. Body wall edema is seen which may reflect volume overload. 2. Right pelviectasis is again seen. ACT 112: Negative or not required by law. Electronically signed by: Mateo Nguyen M.D. 03/06/2023 6:44 PM
[2023-03-06] MEDS ORDERED: PLASMA-LYTE A 1,000 ML IV SCH (19:00)
--- NOTE | 2023-03-06 19:04 | Communication Note ---
Date of Service: March 06, 2023 Updated by primary medical team, patient is accepted to [facility] ICU following cardiac arrest. She was initially accepted there under vascular surgery. Patient CT scan with pneumonia and bilateral pleural effusions will add broaden out antibiotics based on QTC for atypical pneumonia in setting of continued increasing WBC count and post arrest. Patient is following commands, remains intubated, vasopressor requirements are decreasing. Of Clinical Note- Central Access as well as Femoral Access were placed EMERGENTLY during cardiac arrest and should be changed out when stable and appropriate.
[2023-03-06] MEDS ORDERED: AZITHROMYCIN 500 MG in DEXTROSE 5% 250 ML IV ONE (19:08)
[2023-03-06] MEDS ORDERED: MAGNESIUM SULFATE / D5W 1 GM/100 ML BAG IV SCH (19:15)
--- NOTE | 2023-03-06 19:47 | Pharmacy Report ---
Pharmacy Vanc AUC Short Note - Date of Service March 06, 2023 - Assessment & Plan Assessment 72 year old F receiving Vancomycin for treatment of pulmonary source post- cardiac arrest. Plan Vancomycin * Load: Vancomycin 2,000 mg IV once on 03/06/23 at 1843. * Maintenance: Vancomycin 1,250 mg IV q24h starting 03/07/23 at 0900. Patient may need to be dosed by level due to possible PAUL (serum creatinine change from 0.86 on 03/06/23 at 0535 to 1.22 on 03/06/23 at 1650) * AUC/GAMAL is the preferred PK/PD target for vancomycin * AUC guided dosing is effective and associated with decreased risk of nephrotoxicity compared to traditional trough targets * Trough level of 15.6 mcg/mL is predicted to achieve target AUC/GAMAL of 400-600 mg/L.hr and may be associated with a 11% risk of nephrotoxicity * Trough or random level ordered for: 03/07/23 with AM labs. Pharmacy will continue to follow and will adjust dose/frequency as necessary. Thank you.
[2023-03-06] MEDS ORDERED: PROPOFOL BOLUS FROM BAG IV PRN (20:02)
[2023-03-06] MEDS ORDERED: propofoL 1,000 MG/100 ML VIAL IV SCH (20:15)
[2023-03-06] MEDS ORDERED: SODIUM CHLORIDE 0.9% 10ML FLUSH IV ONE (20:59)
[2023-03-06 23:46] LABS: A calco-baum cmplx NotReported Not Detected (NotDetected); Bact fragilis Not Reported Not Detected (NotDetected); Blood Culture Id Panel PCR Panel Negative (NotDetected); C auris Not Reported Not Detected (NotDetected); Calbicans Not Reported Not Detected (NotDetected); Candida glabrata Not Reported Not Detected (NotDetected); Candida krusei Not Reported Not Detected (NotDetected); Cneoformans/gatti Not Reported Not Detected (NotDetected); Cparapsilosis Not Reported Not Detected (NotDetected); E cloacae compx Not Reported Not Detected (NotDetected); Efaecalis Not Reported Not Detected (NotDetected); Efaecium Not Reported Not Detected (NotDetected); Enterobacterales Not Reported Not Detected (NotDetected); Escherichia coli Not Reported Not Detected (NotDetected); H influenzae Not Reported Not Detected (NotDetected); K aerogenes Not Reported Not Detected (NotDetected); Koxytoca Not Reported Not Detected (NotDetected); Kpneumoniae grp Not Reported Not Detected (NotDetected); Lmonocyt Not Reported Not Detected (NotDetected); N meningitidis Not Reported Not Detected (NotDetected); P aeruginosa Not Reported Not Detected (NotDetected); Proteus spp Not Reported Not Detected (NotDetected); Salmonella spp Not Reported Not Detected (NotDetected); Smarcescens Not Reported Not Detected (NotDetected); Staph lugdunensis Not Reported Not Detected (NotDetected); Staph spp. Not Reported Not Detected (NotDetected); Staphaureus Not Reported Not Detected (NotDetected); Staphepi Not Reported Not Detected (NotDetected); Stenmaltophilia Not Reported Not Detected (NotDetected); Strep agal(GrpB) Not Reported Not Detected (NotDetected); Strep pneum Not Reported Not Detected (NotDetected); Strep pyog (GrpA) Not Reported Not Detected (NotDetected); Strep spp Not Reported Not Detected (NotDetected)
--- NOTE | 2023-03-07 05:48 | Electrocardiogram Report ---
Test Reason : Blood Pressure : / mmHG Vent. Rate : 133 BPM Atrial Rate : 000 BPM P-R Int : 000 ms QRS Dur : 132 ms QT Int : 376 ms P-R-T Axes : 000 -67 101 degrees QTc Int : 559 ms Sinus tachycardia Left axis deviation Right bundle branch block Left ventricular hypertrophy with repolarization abnormality ( R in aVL ) Inferior infarct , age undetermined Anterior infarct , age undetermined Abnormal ECG When compared with ECG of 15-APR-2017 21:36, T wave inversion now evident in Lateral leads Confirmed by Jeffery Iyer ([id number]) on 03/07/2023 5:47:53 AM Referred By: Confirmed By:Jeffery Iyer
--- NOTE | 2023-03-07 06:24 | Electrocardiogram Report ---
Test Reason : Blood Pressure : / mmHG Vent. Rate : 093 BPM Atrial Rate : 093 BPM P-R Int : 194 ms QRS Dur : 160 ms QT Int : 448 ms P-R-T Axes : 073 -61 107 degrees QTc Int : 557 ms Normal sinus rhythm Possible Left atrial enlargement Left axis deviation Right bundle branch block Anteroseptal infarct , age undetermined T wave abnormality, consider lateral ischemia Abnormal ECG When compared with ECG of 05-MAR-2023 11:53, Vent. rate has decreased by 40 bpm Reconfirmed by Jeffery Iyer ([id number]) on 03/07/2023 6:24:16 AM Referred By: REFERRED SELF Confirmed By:Jeffery Iyer
--- NOTE | 2023-03-07 06:29 | Electrocardiogram Report ---
Test Reason : Blood Pressure : / mmHG Vent. Rate : 103 BPM Atrial Rate : 103 BPM P-R Int : 190 ms QRS Dur : 160 ms QT Int : 412 ms P-R-T Axes : -03 -70 101 degrees QTc Int : 539 ms Sinus tachycardia with Premature supraventricular complexes Left axis deviation Right bundle branch block Possible Anteroseptal infarct (cited on or before 05-MAR-2023) T wave abnormality, consider lateral ischemia Abnormal ECG When compared with ECG of 05-MAR-2023 20:30, Premature supraventricular complexes are now Present T wave inversion less evident in Anterior leads Confirmed by Jeffery Iyre ([id number]) on 03/07/2023 6:29:00 AM Referred By: REFERRED SELF Confirmed By:Jeffery Iyer
[2023-03-07] MEDS ORDERED: VANCOMYCIN LEVEL ONE (08:00)
[2023-03-07] MEDS ORDERED: VANCOMYCIN HCL 1,250 MG in SODIUM CHLORIDE 0.9% 250 ML IV SCH (09:00)
--- NOTE | 2023-03-08 09:26 | Electrocardiogram Report ---
Test Reason : Blood Pressure : / mmHG Vent. 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
== END 2023-03-06 21:00 | disposition short-term general hospital (02) | DRG 853 ==
LOC: ED 11:23 → OR 14:59 → 4W 15:00 → SUATTDRO 15:00 → OR 15:00 → 1E 03-06 16:11